=== PATIENT | female | born 1965 | race Caucasian/White ===

== ENCOUNTER 2021-08-28 10:15 | Inpatient (IN) | payer BC, OTHER ==
--- OUTSIDE RECORDS SUMMARY | 2021-08-28 10:18 | XMS REPORT | Continuity of Care Document ---
:1965 Author Organization [facility] t Address [address] [place] [address] Care Team Providers Name Role Phone DERRELL MULLIGAN Primary Care Physician Unavailable Nghia Mulligan Attending Clinician Unavailable Mohan AQUINO Attending Clinician Unavailable Kenia AYALA S Attending Clinician VERÓNICA DAVIS Attending Clinician Unavailable Payers Payer Name Policy Type Policy Number Effective Date Expiration Date Mohan chahal [facility] [id number] 2017 00:00:00 SELECT Problems Condition Condition Condition Status Onset Resolution Last Treating Co mments Source Name Details Category Date Date Treatment Clinician Date No known No known Disease Unive rs active active ity of problems problems [facility] Allergies, Adverse Reactions, Alerts Allergy Allergy Status Severity Reaction(s) Onset Inactive Treating Comm ents Source Name Type Date Date Clinician SULFA DRUG Active Unknown-Cmnt 0 Univ ers DYNE 2-15 ity of 00:00: [place] 00 [facility] ERYTHROM DRUG Active Unknown-Cmnt 0 Un jose armando YCIN 2-15 ity of 00:00: [place] 00 [facility] Erythrom Propensi Active Unknown - 0 Uni vers ycin ty to See comments 2-15 ity of adverse 00:00: [place] reaction 00 Medical s Branch Sulfa Propensi Active Unknown - 0 Unive rs Dyne ty to See comments 2-15 ity of adverse 00:00: [place] reaction 00 Medical s Branch NO KNOWN Drug Active Univers ALLERGIE Class ity of S [facility] Bactrim Adverse Active hives,vomiti [facility] Erythrom Adverse Active Vomiting [facility] Social History Social Habit Start Date Stop Date Quantity Comments Source Exposure to Not sure [facility] SARS-CoV-2 (event) Medica l Branch Sex Assigned At [birth year] [facility] 00:00:00 00:00:00 [facility] [place] Smoking Status Start Date Stop Date Source Unknown if ever smoked [facility] Medications Ordered Filled Start Stop Current Ordering Indication Dosage Frequency Signature Comments Components Source Medication Medication Date Date Medication? Clinician (SIG) Name Name dextfabienne 2021- No 5mL 5 mL, [facility] ers rphan-guaif 08-26 Oral, ity of enesin 22:45: 21:38 ONCE, 1 [place] (ROBITUSSIN 00 :00 dose, On Medi jacqueline DM) 10-100 Tue Branch mg/5 mL 08/26/21 at solution 5 1645, mL Routine ondansetron 2021- No 4mg 4 mg, [facility] ers (ZOFRAN-ODT 08-26 Oral, ity of ) 22:30: 21:39 ONCE, 1 [place] disintegrat 00 :00 dose, On Medi jacqueline ing tablet Tue Branch 4 mg 08/26/21 at 1630, Routine acetaminoph 2021- No 650mg 650 mg, U nivers en 08-26 Oral, ity of (TYLENOL) 21:45: 20:44 [facility] :00 dose, On Medic al mg Tue Branch 08/26/21 at 1545, KATRIN ondansetron Yes [id number] 4mg Take 1 Univers 4 mg 2-15 tablet by ity of disintegrat 00:00: mouth [place] ing tablet 00 every 8 Medica l (eight) Branch hours as needed for Nausea and Vomiting (N/V). Duloxetine Duloxetine Yes Na Mulligan TAKE ONE [facility] HCl HCl CAPSULE BY [facility] ent Clinics Furosemide Furosemide Yes Na Mulligan [address] [facility] Hydrochloro Hydrochloro Yes Na Mulligan [address] [address] thiazide thiazide in [facility] Folic Acid Folic Acid Yes Na Mulligan [address] [facility] Aspirin 81 Aspirin 81 Yes Na Mulligan [address] [facility] Furosemide Furosemide Yes Na Mulligan TAKE [address] [facility] TABLET BY [facility] DAILY l NEEDED FOR Outpati SWELLING ent Clinics Omeprazole Omeprazole Yes Na Mulligan [address] [facility] Lisinopril Lisinopril Yes Na Mulligan [address] [facility] Hydroxychlo Hydroxychlo Yes Na Mulligan TAKE [address] [facility] [address] roquine roquine TABLET BY Luke s - Sulfate Sulfate MOUTH ONCE Mem oria DAILY WITH l FOOD OR Outpati MILK ent Clinics Lisinopril Lisinopril Yes Na Mulligan [address] [facility] Omeprazole Omeprazole Yes Na Mulligan [address] [facility] Vitamin Vitamin Yes Na Mulligan [address] B-12 B-12 [facility] Hydrochloro Hydrochloro Yes Na Mulligan [address] [facility] [address] thiazide thiazide in the [facility] Immunizations Ordered Filled Immunization Date Status Comments [facility] e Immunization Name Name Afluria single dose Afluria single dose 2019-05-[address] [facility] Vital Signs Vital Name Observation Time Observation Value Comments Source Systolic blood 2021-08-26 21:45:00 98 mm[facility]Hg[facility] Diastolic blood 2021-08-26 21:45:00 64 mm[Hg] [facility] Heart rate 2021-08-26 21:45:00 108 /min [facility] Body temperature 2021-08-26 21:45:00 37.56 Manjula [facility] Respiratory rate 2021-08-26 21:45:00 20 /min [facility] Oxygen saturation in 2021-08-26 21:45:00 97 /min [facility] blood by [facility] Pulse oximetry Branch Body weight 2021-08-26 20:37:00 72.576 kg [facility] Procedures Procedure Date / Time Performed Performing Clinician Sourpavel e RAPID INFLUENZA A/B 2021-08-26 20:47:00 Jess Aquino [facility] COVID-19 (ID NOW 2021-08-26 20:47:00 Jess Aquino [facility] RAPID TESTING) Medical Branch NOTICE OF PRIVACY 2021-08-26 20:36:02 Doctor Unassigned, No Univ [facility] PRACTICES Name [facility] [place] CONSENT/REFUSAL FOR 2021-08-26 20:32:42 Doctor Unassigned, No Un [facility] DIAGNOSIS AND Name [facility] TREATMENT Encounters Start End Encounter Admission Attending Care Care Encounter Source Date/Time Date/Time Type Type Clinicians Facility Department ID 2021-08-26 Outpatient Mulligan, Na STLMLC ST[facility]MLC [id number] [facility] 14:35:00 [id number] [facility] 2021-08-06 Outpatient Mulligan, Na STLMLC STLMLC [id number] [facility] [address] 14:15:31 [id number] [facility] 2021-08-06 Outpatient Mulligan, Na STLMLC STLMLC [id number] [facility] [address] 13:48:34 [id number] [facility] 2021-08-06 Outpatient Mulligan, Na STLMLC STLMLC [id number] [facility] [address] 13:14:29 [id number] [facility] 2021-08-06 Outpatient Mulligan, Na STLMLC STLMLC [id number] [facility] 13:13:24 [id number] [facility] 2021-08-06 Outpatient Mulligan, Na STLMLC STLMLC [id number] [facility] [address] 12:18:26 [id number] [facility] 2021-08-06 Outpatient Mulligan, Na STLMLC STLMLC [id number] [facility] 11:35:56 [id number] [facility] 2021-08-06 [facility] [id number] [facility] 11:21:40 [id number] [facility] 2021-08-06 Out[facility] [id number] [facility] 11:04:27 [id number] [facility] 2021-08-26 2021-08-26 [facility] [id number] Univers 14:37:00 16:05:00 J[place] [facility] 2021-08-26 2021-08-26 [facility] [id number] Univers 14:37:00 16:05:00 Jess Preston PLEVNA [id number] i daren [facility] [id number] [facility] [id number] [address] 2021-07-02 2021-07-02 [address] [facility] [id number] [facility] 2021-04-29 2021-04-[address] [facility] [id number] 2021-04-15 2021-04-[address] [facility] [id number] [facility] 2020-12-23 2020-12-23 [facility] [id number] [facility] 2020-11-20 2020-11-20 [facility] [id number] [facility] 2020-11-19 2020-11-19 Outpatient [facility] [id number] [facility] 2020-08-16 2020-08-16 Outpatient PATT DAVIS [id number] [id number] 06:50:00 23:59:00 [facility] 2020-07-30 2020-07-[address] [facility] [id number] [facility] 2020-07-18 2020-07-[address] [facility] [id number] [facility] 2020-02-23 2020-02-23 [facility] [id number] [facility] 13:04:00 13:04:00 [place] [employer] - [facility] Medicine l Medicine Outpati ent Clinics 2020-02-20 2020-02-20 [facility] [id number] 16:00:00 16:00:00 [place] [employer] - Génie Num[employer]que [facility] Medicine l Medicine Outpati ent Clinics 2019-11-22 2019-11-22 [facility] [id number] 12:00:00 12:00:00 [place] [employer] - [facility] Medicine l Medicine Outpati ent Clinics 2019-11-15 2019-11-15 [facility] [id number] [address] 14:25:00 14:25:00 [place] [employer] - G[employer]ie Num[employer]que [facility] Medicine l Medicine Outpati ent Clinics 2019-08-07 2019-08-07 [facility] [id number] [address] 13:41:00 13:41:00 [place] [employer] - Drive [facility] Medicine l Medicine Outpati ent Clinics 2019-06-02 2019-06-02 [facility] [id number] 16:54:00 16:54:00 [place] [employer] - Génie Numérique [facility] Medicine l Medicine Outpati ent Clinics 2019-05-30 2019-05-30 [facility] [id number] 09:23:00 09:23:00 t [place] [employer] - Génie Numérique [facility] Medicine l Medicine Outpati ent Clinics 2019-05-12 2019-05-12 [facility] [id number] 16:00:00 16:00:00 [place] [employer] - Drive [facility] Medicine Outpati ent Clinics 2018-10-31 2018-10-31 [facility] [id number] [address] 16:49:00 16:49:00 t [place] [employer] - Génie Numérique [facility] Medicine Outpati ent Clinics 2018-10-04 2018-10-04 [facility] [id number] [address] 15:30:00 15:30:00 t [employer] - Génie Num[employer]que [facility] Medicine Outpati ent Clinics 2018-07-07 2018-07-07 [facility] [id number] 16:00:00 16:00:00 t [employer] - Génie Num[employer]que [facility] Medicine Outpati ent Clinics 2018-04-07 2018-04-07 [facility] [id number] [address] 15:45:00 15:45:00 t [employer] [facility] Medicine Outpati ent Clinics 2018-01-06 2018-01-06 [facility] [id number] 16:30:00 16:30:00 t [employer] [facility] Medicine Outpati ent Clinics 2017-12-17 2017-12-17 [facility] [id number] 09:30:00 09:30:00 t [employer] [facility] Medicine Outpati ent Clinics Results This patient has no known results.
[2021-08-28] MEDS ORDERED: NA CHLORIDE 0.9% 1,000 ML ONE (10:49)
--- NOTE | 2021-08-28 11:04 | RAD REPORT ---
EXAM DESCRIPTION: RAD - Chest Single View - 08/28/2021 10:57 am CLINICAL HISTORY: Cough;Fever COMPARISON: Chest Single View dated 06/13/2016 FINDINGS: Lines: None. Lungs: No evidence of edema or pneumonia. Pleural: No significant pleural effusions or pneumothorax. Cardiac: The heart size is within normal limits. Bones: No acute fractures. Other: IMPRESSION: No acute cardiopulmonary disease.
[2021-08-28] MEDS ORDERED: MORPHINE 4 MG/ML SYR ONE (11:15)
[2021-08-28] MEDS ORDERED: PROMETHAZINE INJ 25 MG/ML AMP ONE (11:15)
[2021-08-28 11:34] LABS: SARS-COV-2 RT PCR NEGATIVE (NEGATIVE)
[2021-08-28 11:37] LABS: Bilirubin Direct 0.1 mg/dL (0-0.2); Bilirubin Total 0.3 mg/dL (0.2-1.0); Protein, Total 7.7 g/dL (6.4-8.2)
[2021-08-28 11:46] LABS: Potassium 2.8 mmol/L (3.5-5.1)
[2021-08-28 11:47] LABS: Absolute Lymphocytes (CBC) 0.6 K/uL (0.7-4.9); Hematocrit 33.3 % (36.0-45.0); Lymphocytes % 2.5 % (15.3-44.8); MPV 8.5 fL (7.6-11.3)
[2021-08-28 12:26] LABS: Blood Morphology Comment NOT SEEN (NOT SEEN); Platelet Estimate ADEQ; Platelets, Giant FEW
[2021-08-28 12:40] LABS: Urine Blood 1+ (Negative); Urine Glucose Negative (Negative); Urine Protein 1+ (Negative)
--- NOTE | 2021-08-28 12:44 | RAD REPORT ---
EXAM DESCRIPTION: CTAbdomen Pelvis W Contrast - 08/28/2021 12:13 pm CLINICAL HISTORY: FLANK PAIN COMPARISON: No comparisons TECHNIQUE: CT of the abdomen and pelvis was performed. All CT scans are performed using dose optimization technique as appropriate and may include automated exposure control or mA/KV adjustment according to patient size. FINDINGS: Lower chest: No acute abnormality. Small hiatal hernia. Subpleural nodule in the right low er lobe measuring 6 millimeters is benign. Liver: No acute abnormality or suspicious lesions. Biliary: Cholecystectomy. Stomach: No significant focal abnormality. Duodenum: No significant focal abnormality. Pancreas: No significant abnormality. Spleen: No significant abnormality. Adrenal: No suspicious lesions. Kidney/ureter: No hydronephrosis. No renal calculi. Striated nephrograms bilaterally. Retroperitoneum: No retroperitoneal adenopathy. Vascular: No aneurysm. Atherosclerosis . Bowel: No significant focal abnormality. Peritoneum: No ascites or free air. Bladder: Trace bladder gas. Reproductive: No adnexal masses. Bones: No acute fracture. Multilevel degenerative changes are present in the spine. Other: n/a IMPRESSION: Striated nephrograms bilaterally concerning for pyelonephritis. Correlate with urinalysi s.
[2021-08-28] MEDS ORDERED: ACETAMINOPHEN 325 MG TABLET ONE (12:49)
[2021-08-28] MEDS ORDERED: NA CHLORIDE 0.9% 250 ML ONE (12:50)
[2021-08-28] MEDS ORDERED: POTASSIUM CL SA 10 MEQ TAB PO ONE (12:50)
[2021-08-28] MEDS ORDERED: KCL 20 MEQ/100 mL IVPB 100 ML IV ONE (12:50)
--- NOTE | 2021-08-28 13:26 | ER ---
Nurse's Notes [facility] Name: Mira Lim Age: 56 yrs Sex: Female : 1965 Arrival Date: 08/28/2021 Time: 10:18 Bed 14 Private MD: Diagnosis: Pyelonephritis acute-bilateral;Vomiting;Hypokalemia Presentation: 08/28 10:24 Chief complaint: Patient states: she has been having high fevers, body aches and chills ap3 the last few days. patient reports going to the Dr. office this morning and was sent here to the ER for her symptoms. Patient reports having recent kidney infection.-Patient was given 1 gram of rocephin at 0945 IM at the providers office. Coronavirus screen: chills, congestion, fatigue, fever, headache, muscle pain, nausea, shaking with chills, sore throat, vomiting. Client presents with at least one sign or symptom that may indicate coronavirus-19. Standard/surgical mask placed on the client. Provider contacted for isolation considerations. Ebola Screen: No symptoms or risks identified at this time. Initial Sepsis Screen: Does the patient meet any 2 criteria? HR > 90 bpm. Does the patient have a suspected source of infection? Yes: Productive cough/pneumonia. Risk Assessment: Do you want to hurt yourself or someone else? Patient reports no desire to harm self or others. Onset of symptoms was August 25, 2021. 10:24 Method Of Arrival: Ambulatory ap3 10:24 Acuity: MARIS 3 ap3 Triage Assessment: 10:29 General: Appears uncomfortable, Behavior is cooperative, Reports chills for fever for ap3 feeling ill for fatigue for. Pain: Complains of pain in "all over" Pain began gradually, 2-3 days ago. Neuro: Level of Consciousness is awake, alert, obeys commands, Oriented to person, place, time, situation, Appropriate for age Moves all extremities. Gait is steady, Speech is normal. Cardiovascular: Patient's skin is warm and dry. Respiratory: Airway is patent Respiratory effort is even, unlabored, Respiratory pattern is regular, symmetrical. GI: Reports nausea, vomiting. Historical: - Allergies: 10:27 erythromycin base; ap3 10:27 Sulfa (Sulfonamide Antibiotics); ap3 - Home Meds: 10:27 Hydrochlorothiazide Oral [Active]; hydroxychloroquine oral [Active]; ap3 - PMHx: 10:27 Hypertension; Lupus erythematosus; ap3 - Immunization history:: Client reports receiving the 2nd dose of the Covid vaccine, Flu vaccine is up to date. - Social history:: Smoking status: Patient denies any tobacco usage or history of. Screenin:31 Abuse screen: Denies threats or abuse. Nutritional screening: No deficits noted. ap3 Tuberculosis screening: No symptoms or risk factors identified. 19:37 Fall Risk None identified. No fall in past 12 months (0 pts). No secondary diagnosis (0 st1 pts). IV access (20 points). Ambulatory Aid- None/Bed Rest/Nurse Assist (0 pts). Gait- Normal/Bed Rest/Wheelchair (0 pts) Mental Status- Oriented to own ability (0 pts). Total Brewer Fall Scale indicates No Risk (0-24 pts). Assessment: 10:38 General: Appears in no apparent distress. uncomfortable, Behavior is calm, cooperative. ic1 Pain: Denies pain. Neuro: Level of Consciousness is awake, alert, obeys commands, Oriented to person, place, time, situation. Cardiovascular: No deficits noted. Respiratory: No deficits noted. Musculoskeletal: Reports generalized body aches. 10:54 General: patient provided with specimen cup and education for proper urine collection. ap3 Patient verbalized understanding. . 13:12 Reassessment: Pt labs (lactate, blood cultures x 2) collected incorrectly. Redrawn and ic1 collected at pt's bedside using two patient identifiers. Lab called on multiple attempts to notify to dispose of incorrectly collected labs. Acknowledged understanding each time. 18:44 Reassessment: Attempted pt report and was told they are in shift huddle as of now. Will ic1 call back to receive report. Vital Signs: 10:24 BP 142 / 109; Pulse 123; Resp 19; Temp 100.9; Pulse Ox 98% ; Weight 72.57 kg; Height 5 ap3 ft. (152.40 cm); 11:12 BP 116 / 70; Pulse 107; Resp 17; Pulse Ox 99% ; Pain 10/10; eo2 13:14 BP 109 / 72; Pulse 100; Resp 18; Pulse Ox 99% on R/A; ic1 14:31 BP 120 / 77; Pulse 107; Resp 18; Pulse Ox 100% on R/A; ic1 18:38 BP 117 / 73; Pulse 116; Resp 18; Pulse Ox 100% on R/A; ic1 10:24 Body Mass Index 31.25 (72.57 kg, 152.40 cm) ap3 ED Course: 10:18 Patient arrived in ED. ds1 10:27 Triage completed. ap3 10:31 Arm band placed on right wrist. ap3 10:36 Waylon Cho NP is PHCP. pm1 10:36 Bhaskar Zhang MD is Attending Physician. pm1 10:38 Jayde Renee RN is Primary Nurse. ic1 10:45 No provider procedures requiring assistance completed. Inserted saline lock: 20 gauge ic1 in left antecubital area, using aseptic technique. Blood collected. 10:57 Chest Single View XRAY In Process Unspecified. EDMS 10:57 COVID-19/FLU A+B (Document "Date of Onset" if Symptomatic) Sent. ap3 12:13 CT Abd/Pelvis - IV Contrast Only In Process Unspecified. EDMS 13:25 Hector Jerez MD is Hospitalizing Provider. pm1 14:32 Blood Culture Adult (2) Sent. tp1 14:32 Inserted saline lock: 20 gauge in right antecubital area, using aseptic technique. tp1 Blood collected. 19:37 Patient has correct armband on for positive identification. st1 19:38 Patient admitted, IV remains in place. st1 Administered Medications: 11:07 Drug: NS 0.9% 1000 ml Route: IV; Rate: 1000 ml; Site: right antecubital; ic1 11:21 Drug: Phenergan (promethazine) 12.5 mg Route: IVP; Site: left antecubital; eo2 11:21 Drug: morphine 4 mg Route: IVP; Site: left antecubital; eo2 12:56 Drug: Potassium Chloride 20 mEq Route: IV; Rate: calculated rate; Site: left ic1 antecubital; 12:56 Drug: Potassium Chloride 40 mEq Route: PO; ic1 13:10 Drug: Tylenol 650 mg Route: PO; ic1 Outcome: 13:26 Decision to Hospitalize by Provider. pm1 19:36 Admitted to Tele accompanied by tech, family with patient, via stretcher, room 212, st1 with chart, Report called to TERESA Diamond 19:37 Condition: good st1 19:37 Instructed on the need for admit, Demonstrated understanding of 19:50 Patient left the ED. bb Signatures: Dispatcher [employer] [facility] Leona Duvall ds1 Caryl Mccartney RN RN bb Waylon Cho, CAPSULE INSPECTOR CAPSULE INSPECTOR pm1 Becky Jesus RN RN ap3 Janene Norman tp1 Ainsley Leigh RN RN eo2 Jayde Renee RN RN ic1 Annette Amaro RN RN st1 Corrections: (The following items were deleted from the chart) 10:31 10:24 Chief complaint: Patient states: she has been having high fevers, body aches and ap3 chills the last few days. patient reports going to the office this morning and was sent here to the ER for her symptoms. Patient reports having recent kidney infection. ap3
[2021-08-28 13:27] LABS: Urine Bacteria <20 /HPF (<20); Urine RBC <5 /HPF (NONE SEEN); Urine Yeast FEW (NONE SEEN)
--- NOTE | 2021-08-28 13:27 | EDPHYS ---
Physician Documentation [facility] Name: Mira Lim Age: 56 yrs Sex: Female : 1965 Arrival Date: 08/28/2021 Time: 10:18 Bed 14 Private MD: ED Physician Bhaskar Zhang HPI: 08/28 10:43 This 56 yrs old Female presents to ER via Ambulatory with complaints of Sent By Dr beti Vance- Flank Pain, Fever. 10:43 The patient complains of pain in the left low back. The pain does not radiate. Onset: pm1 The symptoms/episode began/occurred 3 day(s) ago. Modifying factors: The symptoms are alleviated by nothing. the symptoms are aggravated by nothing. Associated signs and symptoms: Pertinent positives: fever, dark urine, Pertinent negatives: diarrhea. Severity of pain: in the emergency department the pain is actually worse. The patient has not experienced similar symptoms in the past. The patient has been recently seen by a physician: the patient's primary care provider, Dr. Vance's midlevel and given IM Rocephin for possibly UTI. Historical: - Allergies: 10:27 erythromycin base; ap3 10:27 Sulfa (Sulfonamide Antibiotics); ap3 - Home Meds: 10:27 Hydrochlorothiazide Oral [Active]; hydroxychloroquine oral [Active]; ap3 - PMHx: 10:27 Hypertension; Lupus erythematosus; ap3 - Immunization history:: Client reports receiving the 2nd dose of the Covid vaccine, Flu vaccine is up to date. - Social history:: Smoking status: Patient denies any tobacco usage or history of. ROS: 10:43 Cardiovascular: Negative for chest pain, palpitations, and edema, Respiratory: Negative pm1 for shortness of breath, cough, wheezing, and pleuritic chest pain. 10:43 MS/Extremity: Negative for injury and deformity, Skin: Negative for injury, rash, and discoloration, Neuro: Negative for headache, weakness, numbness, tingling, and seizure. 10:43 Constitutional: Positive for body aches, fever. 10:43 Abdomen/GI: Positive for nausea and vomiting, Negative for abdominal pain, diarrhea. 10:43 Back: Positive for flank pain, bilaterally. 10:43 : Positive for flank pain, Dark urine. 10:43 All other systems are negative. Exam: 10:43 Constitutional: This is a well developed, well nourished patient who is awake, alert, pm1 and in no acute distress. Head/Face: Normocephalic, atraumatic. 10:43 Skin: Warm, dry with normal turgor. Normal color with no rashes, no lesions, and no evidence of cellulitis. MS/ Extremity: Pulses equal, no cyanosis. Neurovascular intact. Full, normal range of motion. 10:43 Cardiovascular: Exam negative for acute changes, Rate: tachycardic, Rhythm: regular, Pulses: no pulse deficits are appreciated, Heart sounds: normal, normal S1and S2, Edema: is not appreciated. 10:43 Respiratory: Exam negative for acute changes, respiratory distress, shortness of breath, Breath sounds: are clear throughout. 10:43 Abdomen/GI: Inspection: abdomen appears normal, Palpation: abdomen is soft and non-tender, in all quadrants. 10:43 Back: pain, that is moderate, of the left low back, vertebral tenderness, is not appreciated. 10:43 Neuro: Exam negative for acute changes, Orientation: is normal, Motor: is normal, moves all fours. Vital Signs: 10:24 BP 142 / 109; Pulse 123; Resp 19; Temp 100.9; Pulse Ox 98% ; Weight 72.57 kg; Height 5 ap3 ft. (152.40 cm); 11:12 BP 116 / 70; Pulse 107; Resp 17; Pulse Ox 99% ; Pain 10/10; eo2 13:14 BP 109 / 72; Pulse 100; Resp 18; Pulse Ox 99% on R/A; ic1 14:31 BP 120 / 77; Pulse 107; Resp 18; Pulse Ox 100% on R/A; ic1 18:38 BP 117 / 73; Pulse 116; Resp 18; Pulse Ox 100% on R/A; ic1 10:24 Body Mass Index 31.25 (72.57 kg, 152.40 cm) ap3 MDM: 10:42 Patient medically screened. pm1 10:43 Data reviewed: vital signs. Data interpreted: Pulse oximetry: on room air is 98 %. pm1 Interpretation: normal. 13:10 Counseling: I had a detailed discussion with the patient and/or guardian regarding: the pm1 historical points, exam findings, and any diagnostic results supporting the discharge/admit diagnosis, lab results, radiology results, the need for further work-up and treatment in the hospital. 08/28 10:34 Order name: COVID-19/FLU A+B (Document "Date of Onset" if Symptomatic) ap3 08/28 10:34 Order name: COVID-19/FLU A+B; Complete Time: 11:44 EDMS 08/28 10:46 Order name: Basic Metabolic Panel; Complete Time: 11:49 pm1 08/28 10:46 Order name: CBC with Diff; Complete Time: 12:41 pm1 08/28 10:46 Order name: Hepatic Function; Complete Time: 11:49 pm1 08/28 10:46 Order name: Lipase; Complete Time: 11:49 pm1 08/28 10:46 Order name: Urine Microscopic Only; Complete Time: 14:04 pm1 08/28 11:50 Order name: Procalcitonin; Complete Time: 14:04 pm1 08/28 11:50 Order name: Lactate; Complete Time: 12:41 pm1 08/28 12:26 Order name: Manual Differential; Complete Time: 12:41 EDMS 08/28 12:41 Order name: Urine Dipstick-Ancillary; Complete Time: 12:41 EDMS 08/28 12:43 Order name: Urine Dipstick-Ancillary EDLA 08/28 12:44 Order name: Blood Culture Adult (2) ic 08/28 10:46 Order name: IV Saline Lock; Complete Time: 11:12 pm1 08/28 10:46 Order name: Labs collected and sent; Complete Time: 11:12 pm08/28 10:46 Order name: CT Abd/Pelvis - IV Contrast Only; Complete Time: 12:47 pm08/28 10:46 Order name: Chest Single View XRAY; Complete Time: 11:44 pm1 08/28 10:46 Order name: Urine Dipstick-Ancillary (obtain specimen); Complete Time: 12:44 pm1 08/28 12:44 Order name: Lactate; Complete Time: 13:10 ic1 08/28 13:15 Order name: Magnesium; Complete Time: 14:04 pm1 08/28 13:19 Order name: Urine Culture pm1 08/28 16:12 Order name: Diet Ada 1800 Moreno; Complete Time: 16:13 bd 08/28 18:46 Order name: Procalcitonin EDLA 08/28 16:30 Order name: Labs - recollect needed: recollect light green; Complete Time: 17:50 bd Administered Medications: 11:07 Drug: NS 0.9% 1000 ml Route: IV; Rate: 1000 ml; Site: right antecubital; ic1 11:21 Drug: Phenergan (promethazine) 12.5 mg Route: IVP; Site: left antecubital; eo2 11:21 Drug: morphine 4 mg Route: IVP; Site: left antecubital; eo2 12:56 Drug: Potassium Chloride 20 mEq Route: IV; Rate: calculated rate; Site: left ic1 antecubital; 12:56 Drug: Potassium Chloride 40 mEq Route: PO; ic1 13:10 Drug: Tylenol 650 mg Route: PO; ic1 Disposition Summary: 08/28/21 13:26 Hospitalization Ordered Hospitalization Status: Inpatient Admission pm1 Provider: Hector Jerez pm1 Location: Telemetry/MedSurg (Inpatient) pm1 Condition: Stable pm1 Problem: new pm1 Symptoms: have improved pm1 Bed/Room Type: Standard pm1 Room Assignment: 212(08/28/21 18:35) bd Diagnosis - Pyelonephritis acute - bilateral pm1 - Vomiting pm1 - Hypokalemia pm1 Forms: - Medication Reconciliation Form pm1 - SBAR form pm1 Addendum: 08/30/2021 00:03 Co-signature as Attending Physician, Bhaskar Zhang MD I agree with the assessment and k dr plan of care. Signatures: Dispatcher [employer] EDLA Latricia Paez Kevin, MD MD [facility] Waylon Cho NP [employer] pm1 Becky Jesus RN RN ap3 Ainsley Leigh RN RN eo2 Jayde Renee RN RN ic1 Corrections: (The following items were deleted from the chart) 08/28 13:36 11:51 BLOOD CULTURE*+[id number].BRZ ordered. [facility] EDLA 18:35 13:26 pm1 bd
--- NOTE | 2021-08-28 14:58 | P.HP ---
Certification for Inpatient With expected LOS: <2 Midnights Patient will require the following post-hospital care: None Practitioner: I am a practitioner with admitting privileges, knowledge of patient current condition, hospital course, and medical plan of care. Services: Services provided to patient in accordance with Admission requirements found in Title 42 Section 412.3 of the Code of Federal Regulations <Teresa Dillon - Last Filed: 08/28/21 14:52> Patient History Date of Service: 08/28/21 Primary Care Provider: Unknown Reason for admission: Pyelonephritis History of Present Illness: Patient is a 56 y/o F with HTN and lupus who presents to the ED with 4 days of back pain. She suspected the pain was coming from her kidneys but could not get into see her PCP for a few days. Patient went to her PCP today and gave a urine sample. She was given a 1 gram rocephin and sent to the ED. Patient reports having nausea, vomiting, and fever for the past 4 days. In the ED, WBC 24.4, potassium 2.8, urine 1+ blood, positive nitrite, 1+ leuk est, and 10-[address] abd/pelv suggested pyelonephritis. Patient will be admitted for further treatment. - Past Medical/Surgical History Diabetic: No -: HTN -: Lupus -: Cholecystectomy -: Tonsillectomy -: Sinus Surgery Psychosocial/ Personal History: Patient lives at home with her . She works at a skilled nursing. - Family History Mother -: Other (see notes) (Bipolar and Dementia ) Father -: Cancer (Prostate) - Social History Smoking Status: Never smoker Alcohol use: Yes CD- Drugs: No Caffeine use: Yes Place of Residence: Home <Teresa Dillon - Last Filed: 08/28/21 14:52> Date of Service: 08/28/21 <Hector Jerez - Last Filed: 08/28/21 21:36> Allergies erythromycin base Allergy (Verified 03/06/16 12:08) Nausea/Vomiting/Hives Sulfa (Sulfonamide Antibiotics) Allergy (Verified 03/06/16 12:08) Nausea/Vomiting/Hives Home Medications: Amlodipine [Norvasc] 2.5 mg PO DAILY 11/04/15 Cholecalciferol (Vitamin D3) [Vitamin D3] 2 tab PO DAILY 11/04/15 Cyanocobalamin [Vitamin B-12] 1,000 mcg PO DAILY 11/04/15 Hydroxychloroquine [Plaquenil] 200 mg PO DAILY 11/04/15 Lactobacillus Combo No.13 [Probiotic Pearls Complete] 1 each PO DAILY 11/04/15 Lisinopril [Zestril] 2.5 mg PO DAILY 11/04/15 Omeprazole [Prilosec] 40 mg PO BID 11/04/15 Venlafaxine HCl [Effexor XR] 150 mg PO DAILY PRN 11/04/15 Review of Systems 10-point ROS is otherwise unremarkable General: Fever, Chills, As per HPI Genitourinary: As per HPI Musculoskeletal: Back Pain <Teresa Dillon - Last Filed: 08/28/21 14:52> Physical Examination - Physical Exam General: Alert, In no apparent distress, Oriented x3, Cooperative HEENT: Atraumatic, Normocephalic Neck: Supple, 2+ carotid pulse no bruit, No LAD, Without JVD or thyroid abnormality Respiratory: Clear to auscultation bilaterally, Normal air movement Cardiovascular: Regular rate/rhythm, Normal S1 S2 Gastrointestinal: Normal bowel sounds, No tenderness Musculoskeletal: No tenderness Integumentary: No rashes Neurological: Normal speech, Normal strength at 5/5 x4 extr, Normal tone, Normal affect - Studies Laboratory Data (last 24 hrs) 08/28/21 13:30: Magnesium 1.9 08/28/21 11:05: WBC 24.40 H*, Hgb 11.0 L, Hct 33.3 L, Plt Count 330 08/28/21 11:05: Sodium 133 L, Potassium 2.8 L*, BUN 11, Creatinine 1.18, Glucose 122 H, Total Bilirubin 0.3, AST 14 L, ALT 28, Alkaline Phosphatase 165 H, Lipase 49 L <Teresa Dillon - Last Filed: 08/28/21 14:52> - Studies Laboratory Data (last 24 hrs) 08/28/21 13:30: Magnesium 1.9 08/28/21 11:05: WBC 24.40 H*, Hgb 11.0 L, Hct 33.3 L, Plt Count 330 08/28/21 11:05: Sodium 133 L, Potassium 2.8 L*, BUN 11, Creatinine 1.18, Glucose 122 H, Total Bilirubin 0.3, AST 14 L, ALT 28, Alkaline Phosphatase 165 H, Lipase 49 L <Hector Jerez - Last Filed: 08/28/21 21:36> Assessment and Plan - Plan Assessment Acute pyelonephritis without complication Hypokalemia Lupus HTN Plan Acute pyelonephritis without complication: WBC 24 in ED, will trend. Lactate negative. rocephin 1g q24h, zofran PRN nausea, morphine PRN pain Hypokalemia: 2.8 in the ED and given supplementation. will continue to replete as necessary Lupus: obtain and continue home medications HTN: obtain and continue home medications DVT PPX: Lovenox Code Status: Full Discharge Plan: Home Plan to discharge in: 48 Hours - Advance Directives Does patient have a Living Will: No Does patient have a Durable POA for Healthcare: No - Code Status/Comfort Care Code Status Assessed: Yes (Full) Critical Care: No Time Spent Managing Pts Care (In Minutes): 55 <Teresa Dillon - Last Filed: 08/28/21 14:52> - Plan Plan of care reviewed with Teresa Dillon and agree with plan as noted above. Patient without severe sepsis. Continue rocephin for acute pyelonephritis f/u cultures patient received IM dose of rocephin at PCPs office, may affect cultures <Hector Jerez - Last Filed: 08/28/21 21:36>
[2021-08-28] MEDS ORDERED: ONDANSETRON 4 MG/2 ML VIAL IV PRN (16:02)
[2021-08-28] MEDS ORDERED: MORPHINE 2 MG/ML SYR IV PRN (16:02)
[2021-08-28] MEDS ORDERED: ENOXAPARIN 40 MG/0.4 ML SQ ONE (17:00)
[2021-08-28] MEDS: ACETAMINOPHEN 500 MG TAB PO PRN (20:51)
[2021-08-28] MEDS: NA CHLORIDE 0.9% 1,000 ML IV SCH (20:53)
[2021-08-28 22:42] VITALS: BMI 30.3
[2021-08-29] MEDS: ACETAMINOPHEN 500 MG TAB PO PRN ×3 (02:15→20:38)
[2021-08-29 05:41] LABS: Absolute Lymphocytes (CBC) 0.8 K/uL (0.7-4.9); Hematocrit 28.5 % (36.0-45.0); Lymphocytes % 5.5 % (15.3-44.8); MPV 8.4 fL (7.6-11.3); RBC Red Blood Cell Count 3.33 M/uL (3.86-4.86)
[2021-08-29 06:13] LABS: Blood Morphology Comment NOT SEEN (NOT SEEN); Platelet Estimate ADEQ; White Blood Cell Scan OK (OK)
--- NOTE | 2021-08-29 06:17 | P.PN ---
Date of Service: 08/29/21 Subjective: No acute events overnight Reports feeling better, no longer dysuria Back pain improved Fever curve improving ROS: 10 point ROS as noted above, otherwise negative Physical exam GEN: Alert, oriented, NAD HEENT: Normal conjunctiva, sclera anicteric CV: Regular rate and rhythm, no edema Pulm: Non-labored respirations on room air ABD: Soft, nontender, nondistended, no CVA tenderness Neuro: Normal speech, normal affect Problem List Acute bilateral pyelonephritis Hypokalemia Lupus HTN Leukocytosis, procalcitonin improving Continue empiric antibiotics with IV Rocephin Zofran as needed, morphine as needed for pain Hypokalemia improved with repletion Fever curve improving Continue current home medications Follow-up cultures VTE: Lovenox Code: Full Dispo: Anticipate DC home in next 1-2 days, follow-up cultures Time Spent Managing Pts Care (In Minutes): 35
[2021-08-29 06:22] LABS: Bilirubin Total 0.3 mg/dL (0.2-1.0); Protein, Total 6.2 g/dL (6.4-8.2)
[2021-08-29 06:23] LABS: Potassium 3.5 mmol/L (3.5-5.1)
[2021-08-29] MEDS: NA CHLORIDE 0.9% 1,000 ML IV SCH ×3 (06:52→20:34)
[2021-08-29] MEDS: CEFTRIAXONE 1,000 MG in NA CHLORIDE 0.9% 50 ML IVPB SCH (08:40)
[2021-08-29] MEDS: ENOXAPARIN 40 MG/0.4 ML SQ SCH (08:41)
[2021-08-29] MEDS ORDERED: POTASSIUM CL SA 10 MEQ TAB PO ONE (09:00)
--- NOTE | 2021-08-29 13:37 | P.CNS ---
Date of Consult: 08/29/21 Primary Care Provider: Unknown Chief Complaint: Pyelonephritis History of Present Illness: The patient is a 56-year-old female with a past medical history of lupus and hypertension who presented to the emergency department secondary to high fevers, dysuria, backaches, and general malaise. Patient states that her symptoms first began Wednesday night with fevers recorded at 103.7. Patient states that she was seen at [facility] on Wednesday and was discharged with no antibiotics. She was then seen by her primary care physician on and was sent to the ED. CT abdomen pelvis showed bilateral pyelonephritis. Urinalysis positive for nitrites and leuk esterase. Blood and urine culture pending, patient Peraglie placed on Rocephin. Infectious diseases been consulted to manage patient's antibiotic regimen. Recommend continuing empiric IV Rocephin until urine cultures are obtained. Patient currently denies nausea/vomiting/diarrhea/shortness of breath/chest pain. Allergies erythromycin base Allergy (Verified 03/06/16 12:08) Nausea/Vomiting/Hives Sulfa (Sulfonamide Antibiotics) Allergy (Verified 03/06/16 12:08) Nausea/Vomiting/Hives Home Medications: Amlodipine [Norvasc] 2.5 mg PO DAILY 11/04/15 Cholecalciferol (Vitamin D3) [Vitamin D3] 2 tab PO DAILY 11/04/15 Cyanocobalamin [Vitamin B-12] 1,000 mcg PO DAILY 11/04/15 Lactobacillus Combo No.13 [Probiotic Pearls Complete] 1 each PO DAILY 11/04/15 Lisinopril [Zestril] 2.5 mg PO DAILY 11/04/15 Omeprazole [Prilosec] 40 mg PO BID 11/04/15 Venlafaxine HCl [Effexor XR] 150 mg PO DAILY PRN 11/04/15 - Past Medical/Surgical History Diabetic: No -: HTN -: Lupus -: Cholecystectomy -: Tonsillectomy -: Sinus Surgery Psychosocial/ Personal History: Patient lives at home with her . She works at a intermediate. - Family History Mother Medical History: Other (see notes) Notes: dementia Father Medical History: Stroke, Cancer - Social History Smoking Status: Never smoker Alcohol use: Yes CD- Drugs: No Caffeine use: Yes Place of Residence: Home Review of Systems 10-point ROS is otherwise unremarkable Physical Examination Temp Pulse Resp BP Pulse Ox 97.4 F 89 18 97/66 97 08/29/21 12:00 08/29/21 12:00 08/29/21 12:00 08/29/21 12:00 08/29/21 12:00 General: Alert, In no apparent distress, Oriented x3 HEENT: Atraumatic, Normocephalic Neck: Supple, 2+ carotid pulse no bruit Respiratory: Clear to auscultation bilaterally, Normal air movement Cardiovascular: No edema, Normal pulses, Regular rate/rhythm Gastrointestinal: Normal bowel sounds, Soft and benign Musculoskeletal: No clubbing, No swelling, No contractures Integumentary: No rashes, No breakdown, No significant lesion Laboratory Data (last 24 hrs) 08/28/21 13:30: Magnesium 1.9 Conclusions/Impression: Antibiotics: Rocephin: 08/29current Assessment/plan Bilateral pyelonephritis CT abdomen pelvis confirmed bilateral pyelonephritis. Blood and urine cultures pending. Patient placed on empiric IV Rocephin, recommend continuing this medication until cultures are obtained. Medical management per primary team Plan of care discussed with Dr. Flores Thank for consultation
[2021-08-29] MEDS: BENZONATATE 100 MG CAP PO PRN (17:24)
[2021-08-30] MEDS: ACETAMINOPHEN 500 MG TAB PO PRN ×2 (03:31→16:38)
--- NOTE | 2021-08-30 06:14 | P.PN ---
Date of Service: 08/30/21 Subjective: Continues to improve Afebrile No dysuria anymore, no CVA tenderness Appetite improving ROS: 10 point ROS as noted above, otherwise negative Physical exam GEN: Alert, oriented, NAD HEENT: Normal conjunctiva, sclera anicteric CV: Regular rate and rhythm, no edema Pulm: Non-labored respirations on room air ABD: Soft, nontender, nondistended, no CVA tenderness Neuro: Normal speech, normal affect Problem List Acute bilateral pyelonephritis Hypokalemia Lupus HTN Overall improving Inflammatory markers trending down Continue empiric antibiotics with IV Rocephin Still waiting on urine culture, concerned may not be growing bacteria, patient received Rocephin in clinic prior to coming to the ED Blood culture negative Hypokalemia improved with repletion Continue current home medications. DC IV fluids VTE: Lovenox Code: Full Dispo: Anticipate DC home in next 24 hours, wound cultures Time Spent Managing Pts Care (In Minutes): 35
[2021-08-30 06:33] LABS: Absolute Lymphocytes (CBC) 1.1 K/uL (0.7-4.9); Hematocrit 28.3 % (36.0-45.0); Lymphocytes % 10.7 % (15.3-44.8); MPV 7.9 fL (7.6-11.3); RBC Red Blood Cell Count 3.31 M/uL (3.86-4.86)
[2021-08-30 07:01] LABS: Bilirubin Total 0.2 mg/dL (0.2-1.0); Potassium 3.1 mmol/L (3.5-5.1)
[2021-08-30] MEDS: ENOXAPARIN 40 MG/0.4 ML SQ SCH (08:06)
[2021-08-30] MEDS: CEFTRIAXONE 1,000 MG in NA CHLORIDE 0.9% 50 ML IVPB SCH (08:06)
[2021-08-30 08:08] LABS: Blood Morphology Comment NOT SEEN (NOT SEEN); Platelet Estimate ADEQ
[2021-08-30] MEDS: NA CHLORIDE 0.9% 1,000 ML IV SCH (12:25)
[2021-08-30] MEDS ORDERED: POTASSIUM 25 MEQ EFFERV TAB PO ONE ×2 (15:36→21:51)
[2021-08-30] MEDS: BENZONATATE 100 MG CAP PO PRN (18:30)
--- NOTE | 2021-08-31 06:10 | P.PN ---
Date of Service: 08/31/21 Subjective: Reports urine is cleared up, denies dysuria Febrile yesterday, otherwise continues to improve Continues with cough, states may be slightly worse No further back pain/CVA tenderness ROS: 10 point ROS as noted above, otherwise negative Physical exam GEN: Alert, oriented, NAD HEENT: Normal conjunctiva, sclera anicteric CV: Regular rate and rhythm, no edema Pulm: Non-labored respirations on room air, cough, transmitted upper airway sounds ABD: Soft, nontender, nondistended, no CVA tenderness Neuro: Normal speech, normal affect Problem List Acute bilateral pyelonephritis Hypokalemia Lupus HTN Overall improving Inflammatory markers trending down Patient febrile again yesterday after 24 hours afebrile, with slight cough, will check chest x-ray, swab for Covid. Unlikely Majority of her symptoms have resolved/improved, no abdominal tenderness, no CVA tenderness. Switch Rocephin to Levaquin, urine culture with mixed katerin. Blood culture remain negative. Suspect Rocephin given in clinic affected culture If patient becomes febrile again or has any abdominal/urinary symptoms, will repeat CT abdomen/pelvis, rule out any perinephric abscess. Currently without any pain/CVA tenderness Continue current home medications. VTE: Lovenox Code: Full Dispo: Anticipate DC home tomorrow Time Spent Managing Pts Care (In Minutes): 35
[2021-08-31 06:17] LABS: Absolute Lymphocytes (CBC) 1.4 K/uL (0.7-4.9); Hematocrit 29.3 % (36.0-45.0); Lymphocytes % 13.9 % (15.3-44.8); MPV 7.7 fL (7.6-11.3); RBC Red Blood Cell Count 3.44 M/uL (3.86-4.86)
[2021-08-31 06:29] LABS: Magnesium 2.1 mg/dL (1.8-2.4); Potassium 3.7 mmol/L (3.5-5.1)
[2021-08-31] MEDS: ACETAMINOPHEN 500 MG TAB PO PRN (06:38)
[2021-08-31] MEDS ORDERED: POTASSIUM 25 MEQ EFFERV TAB PO ONE (06:40)
[2021-08-31] MEDS: BENZONATATE 100 MG CAP PO PRN ×2 (07:10→20:26)
[2021-08-31] MEDS: Levofloxacin 750mg IV 750 MG/150 ML BAG IV SCH (07:42)
[2021-08-31] MEDS: ENOXAPARIN 40 MG/0.4 ML SQ SCH (07:50)
--- NOTE | 2021-08-31 10:21 | RAD REPORT ---
EXAM DESCRIPTION: Amarilis Pa And Lat (2 Views)08/31/2021 9:27 am CLINICAL HISTORY: Cough COMPARISON: August 28, 2021 FINDINGS: The lungs appear clear of acute infiltrate. The heart is normal size. A small left pleural effusion or thickening
[2021-08-31 21:59] VITALS: O2SAT 100
[2021-09-01 04:02] LABS: Hematocrit 27.9 % (36.0-45.0); MPV 7.9 fL (7.6-11.3); RBC Red Blood Cell Count 3.27 M/uL (3.86-4.86)
[2021-09-01 04:16] LABS: Potassium 3.7 mmol/L (3.5-5.1)
[2021-09-01] MEDS: Levofloxacin 750mg IV 750 MG/150 ML BAG IV SCH (06:24)
[2021-09-01] MEDS: ENOXAPARIN 40 MG/0.4 ML SQ SCH (08:46)
[2021-09-01] MEDS ORDERED: POTASSIUM CL SA 10 MEQ TAB PO ONE (09:00)
--- NOTE | 2021-09-01 11:41 | P.PN ---
Subjective Date of Service: 09/01/21 Primary Care Provider: Unknown Chief Complaint: Pyelonephritis Patient seen and examined at bedside, states her symptoms have significantly improved. Plan for DC today. Review of Systems 10-point ROS is otherwise unremarkable Physical Examination - Vital Signs Temperature: 97.4 F Blood Pressure: 122/65 Pulse: 80 Respirations: 15 Pulse Ox (%): 97 - Studies Microbiology Data (last 24 hrs): 08/28/21 13:19 Clean Catch Urine Anton Count - Final 08/28/21 13:19 Clean Catch Urine - Final MIXED KATERIN. Assessment And Plan - Plan Physical Exam: General: Alert, In no apparent distress, Oriented x3 HEENT: Atraumatic, Normocephalic Neck: Supple, 2+ carotid pulse no bruit Respiratory: Clear to auscultation bilaterally, Normal air movement Cardiovascular: No edema, Normal pulses, Regular rate/rhythm Gastrointestinal: Normal bowel sounds, Soft and benign Musculoskeletal: No clubbing, No swelling, No contractures Integumentary: No rashes, No breakdown, No significant lesion Conclusions/Impression: Antibiotics: Rocephin: 08/29current Assessment/plan Bilateral pyelonephritis CT abdomen pelvis confirmed bilateral pyelonephritis. Blood culture showed no growth, urine culture showed mixed katerin. Recommend discontinuing IV Rocephin and transitioning to oral Levaquin x7 days. Medical management per primary team Plan of care discussed with Dr. Mark Sultana for consultation
[2021-09-01 12:23] VITALS: BP 128/58; TEMP 97.8
--- NOTE | 2021-09-01 17:44 | P.DS ---
Admission Date: 08/28/21 Discharge Date: 09/01/21 Primary Care Provider: Unknown Disposition: ROUTINE DISCHARGE Discharge Condition: GOOD Reason for Admission: Pyelonephritis Consultations: Infectious disease Procedures: Problem List Acute bilateral pyelonephritis Lupus HTN Brief History of Present Illness: 56yo F, PMH HTN, SLE presented to ED due to 4 days of back pain. Presented to PCP today and was given 1g rocephin IM and sent to ED. Patient found to have bilateral pyelonephritis on CT and was admitted for further management. Hospital Course: Patient was found to have bilateral pyelonephritis. She was empirically treated with IV rocephin and had improvement of her symptoms. She was afebrile for ~24hrs when she developed another fever on day 3 of antibiotics. She did not have any new or worsening symptoms, and was otherwise continuing to clinically improve. Inflammatory markers continued to improve as well. Rocephin was switched to Levaquin. Patient remained afebrile and was feeling much better. Discharged home to complete 7 more days of levaquin. Urine culture: mixed katerin Blood culturs: no growth Follow up with PCP within 1 week. If you have worsening symptoms, please go to the ER. Vital Signs/Physical Exam: Physical exam GEN: Alert, oriented, NAD HEENT: Normal conjunctiva, sclera anicteric CV: Regular rate and rhythm, no edema Pulm: Non-labored respirations on room air, cough ABD: Soft, nontender, nondistended, no CVA tenderness Neuro: Normal speech, normal affect Temp Pulse Resp BP Pulse Ox 97.8 F 68 17 128/58 L 98 09/01/21 12:00 09/01/21 12:00 09/01/21 12:00 09/01/21 12:00 09/01/21 12:00 Laboratory Data at Discharge: WBC 11.20 K/uL (4.3-10.9) H 09/01/21 03:23 Hgb 9.2 g/dL (12.0-15.0) L 09/01/21 03:23 Hct 27.9 % (36.0-45.0) L 09/01/21 03:23 Plt Count 334 K/uL (152-406) 09/01/21 03:23 Sodium 140 mmol/L (136-145) 09/01/21 03:23 Potassium 3.7 mmol/L (3.5-5.1) 09/01/21 03:23 BUN 7 mg/dL (7-18) 09/01/21 03:23 Creatinine 0.70 mg/dL (0.55-1.3) 09/01/21 03:23 Glucose 97 mg/dL (74-106) 09/01/21 03:23 Magnesium 2.1 mg/dL (1.8-2.4) 08/31/21 06:01 Total Bilirubin 0.2 mg/dL (0.2-1.0) 08/30/21 05:21 AST 17 U/L (15-37) 08/30/21 05:21 ALT 20 U/L (12-78) 08/30/21 05:21 Alkaline Phosphatase 124 U/L (45-117) H 08/30/21 05:21 Lipase 49 U/L (73-393) L 08/28/21 11:05 Home Medications: Amlodipine [Norvasc*] 2.5 mg PO DAILY 11/04/15 Cholecalciferol (Vitamin D3) [Vitamin D3] 2 tab PO DAILY 11/04/15 Cyanocobalamin [Vitamin B-12*] 1,000 mcg PO DAILY 11/04/15 Lactobacillus Combo No.13 [Probiotic Pearls Complete] 1 each PO DAILY 11/04/15 Lisinopril [Zestril] 2.5 mg PO DAILY 11/04/15 Omeprazole [Prilosec] 40 mg PO BID 11/04/15 Venlafaxine HCl [Effexor XR] 150 mg PO DAILY PRN 11/04/15 levoFLOXacin [Levaquin] 750 mg PO DAILY 7 Days #7 tab 09/01/21 New Medications: levoFLOXacin [Levaquin] 750 mg PO DAILY 7 Days #7 tab Physician Discharge Instructions: PROBLEM: (list out Acute Problems for the Current visit) GOAL: Clear understanding of disease process INSTRUCTIONS: Patient was found to have bilateral pyelonephritis. She was empirically treated with IV rocephin and had improvement of her symptoms. She was afebrile for ~24hrs when she developed another fever on day 3 of antibiotics. She did not have any new or worsening symptoms, and was otherwise continuing to clinically improve. Inflammatory markers continued to improve as well. Rocephin was switched to Levaquin. Patient remained afebrile and was feeling much better. Discharged home to complete 7 more days of levaquin. Urine culture: mixed katerin Blood culturs: no growth Follow up with PCP within 1 week. If you have worsening symptoms, please go to the ER. Diet: Regular Activity: As Tolerated DME DME: Date Ordered: Name of Company: [employer] Services Needed: Name of Company: Date or Referral: IMMUNIZATION Influenza Vaccine Indicated: No Influenza Vaccine Given: Date Given: Pneumonia Vaccine Indicated: No Pneumonia Vaccine Given: Date Given: Followup: Merlene Vance DO [Primary Care Provider] - Time spent managing pt's care (in minutes): 45
== END 2021-09-01 14:01 | disposition home or self-care (01) | DRG 690 ==
LOC: ER 10:15 → ERHOLD 14:38 → 2ND 18:41
PROVIDERS: ADMIT Hospitalist; ATTEND Hospitalist
DX: N10 Acute pyelonephritis (principal); M32.9 Systemic lupus erythematosus, unspecified; E87.6 Hypokalemia; I10 Essential (primary) hypertension; Z20.822 Contact with and (suspected) exposure to COVID-19
CPT/HCPCS: 0240U; 36415; 71045; 71046; 74177; 80048; 80053; 80076; 81003; 81015; 83605; 83690; 83735; 84132; 84145; 85025; 85027; 86140; 87040; 87086; 87088; 96374; 96375; 99285; J1650; J2270; J2550; J3480; J7030; J7050; Q9967; U0003

== ENCOUNTER 2023-06-13 15:31 | Emergency (ER) | payer BC ==
--- OUTSIDE RECORDS SUMMARY | 2023-06-13 16:10 | XMS REPORT | Continuity of Care Document ---
:1965 Author Organization [facility] t Address [address] [place] [address] [place] [id number] Care Team Providers Name Role Phone MULLIGAN, KINGA LY Primary Care Physician Unavailable Kinga Mulligan L Attending Clinician Unavailable MATTHIAS ANTUNEZ Attending Clinician Unavailable [id number] Attending Clinician Unavailable LON BOYER Attending Clinician Unavailable NAILA FERGUSON Attending Clinician Unavailable JUAN M HESTER Attending Clinician Unavailable MILO TSANG Attending Clinician Unavailable SARITHA BOWLES Attending Clinician Unavailable MD PAULA Attending Clinician Unavailable SUKUMAR Attending Clinician Unavailable [email or web address] Attending Clinician Unavailable [id number] Attending Clinician Unavailable ROCAEL VAZQUEZ Attending Clinician Unavailable DARRON SANDERSON Attending Clinician Unavailable NHAN MEDINA Attending Clinician Unavailable TOMOGRAPHY, [facility] Attending Clinician Unav israable SARAH RODRÍGUEZ Attending Clinician Unavailable FAB LUNA Attending Clinician Unavailable JESS AQUINO Attending Clinician Unavailable Jess Barron Attending Clinician [email or web address] Admitting Clinician Unavailable Payers Payer Name Policy Type Policy Number Effective Date Expiration Date [facility] [id number] 2022 [place] (ERS-BCBS 00:00:00 CAPITATED) Blue Cross Blue 6 [id number] 2017 [employer] of [place] 00:00:00 [facility] BCBS 2 [id number] 2022 00:00:00 [facility] [id number] 2017 00:00:00 Problems Condition Condition Condition Status Onset Resolution Last Treating Co mments Source Name Details Category Date Date Treatment Clinician Date Menopausal Menopausal Disease Active K elsey and and 4-11 Seybold postmenopa postmenopa 00:00: - usal usal 00 Externa disorder disorder l Essential Essential Disease Active Terell sey hypertensi hypertensi 4-11 Se ybold on on 00:00: - 00 Externa l Gastro-eso Gastro-eso Disease Active K elsey phageal phageal 4-11 Seybold reflux reflux 00:00: - disease disease 00 Externa without without l esophagiti esophagiti s s Menopausal Menopausal Disease Active K elsey and and 4-11 Seybold postmenopa postmenopa 00:00: - usal usal 00 Externa disorder disorder l Other Other Disease Active Yvonne chronic chronic 4-11 Seybold pain pain 00:00: - 00 Externa l Peripheral Peripheral Disease Active K elsey edema edema 4-11 Seybold 00:00: - 00 Externa l Stricture Stricture Disease Active Terell sey of of 4-11 Seybold esophagus esophagus 00:00: - 00 Externa l Tear of Tear of Disease Active Yvonne right right 4-11 Seybold rotator rotator 00:00: - cuff cuff 00 Externa l Lupus Lupus Disease Active Yvonne (multi (multi 1-10 Seybold HCC) HCC) 00:00: - 00 Externa l No known No known Disease Unive rs active active ity of problems problems [facility] Bruising Bruising Problem Commo n [facility] [id number] Bilateral Problem Com mon lower [facility] extremity - [facility] edema [facility] Arthralgia Arthralgia Problem C ommon [facility] [id number] Tear of Problem Commo n right [facility] rotator - [facility] extent, Center unspecifie d whether traumatic [id number] Rheumatoid Problem Co mmon arthritis Spirit of hand, - [facility]I unspecifie [facility] laterality Medica l , Center unspecifie d rheumatoid factor presence [id number] Pain, Problem Commo n [id number] joint, Spirit shoulder, - [facility] right [facility] [id number] Systemic Problem Commo n lupus Spirit erythemato - [facility] lindsay, [facility] SLE Medical type, Center unspecifie d organ involvemen t status [id number] Tenosynovi Problem Com mon tis of Spirit right - [facility] shoulder [facility] Allergies, Adverse Reactions, Alerts Allergy Allergy Status Severity Reaction(s) Onset Inactive Treating Comm ents Source Name Type Date Date Clinician Erythrom Propensi Active Nausea and Ke lsey ycin ty to Vomiting - Seybold Base adverse 00:00: - reaction 00 Externa s l Sulfa Propensi Active Shortness of Ke lsey Drugs ty to Breath 07-14 Seybold adverse 00:00: - reaction 00 Externa s l Erythrom Propensi Active Unknown - Uni vers ycin ty to See comments 2-15 ity of adverse 00:00: [place] reaction 00 [facility] s [facility] Sulfa Propensi Active Unknown - Unive rs Dyne ty to See comments 2-15 ity of adverse 00:00: [place] reaction 00 [facility] s [facility] SULFA DRUG Active Unknown-Cmnt Univ ers DYNE 2-15 ity of 00:00: [place] 00 [facility] ERYTHROM DRUG Active Unknown-Cmnt Un jose armando YCIN 2-15 ity of 00:00: [place] 00 [facility] Erythrom Propensi Active Nausea and Other Ke lsey ycin ty to Vomiting - reaction( Seybo ld Base adverse 00:00: s): - reaction 00 Nausea/Vo Exter na s miting/Hi l ves sulfamet sulfamet Active hives,vomiti Common hoxazole hoxazole ng Spirit / / - CHI trimetho trimetho [facility] erythrom erythrom Active Vomiting Comm on ycin ycin Spirit - CHI [facility] NO KNOWN Drug Active Univers ALLERGIE Class ity of S [facility] Social History Social Habit Start Date Stop Date Quantity Comments Source Exposure to Not sure University SARS-CoV-2 (event) [facility] History of tobacco Cigarette Smoker Yvonne Martinez - use External Gender identity Yvonne renteria - External Sexual orientation Yvonne Martinez - External Alcohol Comment 2023-05-10 2023-05-10 1 shot nightly Marleni Martinez - 00:00:00 00:00:00 External History of Social 2023-05-10 2023-05-10 Yvonne Martinez - function 00:00:00 00:00:00 External Alcohol intake 2023-05-10 2023-05-10 1 /d Yvonne gupta - 00:00:00 00:00:00 External Sex [birth year] Yvonne renteria - 00:00:00 00:00:00 External Smoking Status Start Date Stop Date Source Unknown if ever smoked [facility] Ex-smoker 2022-10-20 00:00:00 2022-10-20 00:00:00 Yvonne alexandraalonso - External Never Smoker Common Play With Pictures / [employer] - [employer] [facility] nter Medications Ordered Filled Start Stop Current Ordering Indication Dosage Frequency Signature Comments Components Source Medication Medication Date Date Medication? Clinician (SIG) Name Name Amoxicillin 2022-07 Yes [id number] 1{tbl} Take 1 Yvonne -Pot 2-01 tablet by Seybold Clavulanate 00:00: mouth 2 - 875-125 MG 00 times Externa oral Tablet daily. l Pseudoeph-B 2022-07 Yes [id number] 10mL Take 10 mL Yvonne romphen-DM 2-01 by mouth 4 Sey bold 30-2-10 00:00: times - MG/5ML oral 00 daily. Faculty Physician a Syrup l Amoxicillin 2022-07 Yes [id number] 1{tbl} Take 1 Yvonne -Pot 2-01 tablet by Seybold Clavulanate 00:00: mouth 2 - 875-125 MG 00 times Externa oral Tablet daily. l Pseudoeph-B 2022-07 Yes [id number] 10mL Take 10 mL Yvonne romphen-DM 2-01 by mouth 4 Sey bold 2-10 00:00: times - MG/5ML oral 00 daily. Faculty Physician a Syrup l Benzonatate 2022-07 Yes [id number] 200mg Q.[id number] Take 1 Yvonne 200 MG oral 1-28 [id number] capsule Seybold Capsule 00:00: 3D (200 mg - 00 total) by Externa mouth 3 l times daily as needed for cough. Benzonatate 2022-07 Yes [id number] 200mg Q.[id number] Take 1 Yvonne 200 MG oral 1-28 [id number] capsule Seybold Capsule 00:00: 3D (200 mg - 00 total) by Externa mouth 3 l times daily as needed for cough. Omeprazole 2022-07 Yes 40mg Take 1 Kelse y 40 MG oral 1-16 capsule Seybol d Delayed 00:00: (40 mg - Release 00 total) by Externa Capsule mouth l daily. Omeprazole 2022-07 Yes 40mg Take 1 Kelse y 40 MG oral 1-16 capsule Seybol d Delayed 00:00: (40 mg - Release 00 total) by Externa Capsule mouth l daily. Amoxicillin 2022-07 Yes [id number] 1{tbl} Take 1 Yvonne -Pot 0-13 tablet by Seybold Clavulanate 00:00: mouth 2 - 875-125 MG 00 times Externa oral Tablet daily. l Benzonatate 2022-07 Yes [id number] 200mg Q.[id number] Take 1 Yvonne 200 MG oral 0-13 [id number] capsule Seybold Capsule 00:00: 3D (200 mg - 00 total) by Externa mouth 3 l times daily as needed for cough. Benzonatate 2022-07 Yes [id number] 200mg Q.[id number] Take 1 Yvonne 200 MG oral 0-13 [id number] capsule Seybold Capsule 00:00: 3D (200 mg - 00 total) by Externa mouth 3 l times daily as needed for cough. Amoxicillin 2022-07- No [id number] 1{tbl} Take 1 Yvonne -Pot 0-13 10-30 tablet by Seybold Clavulanate 00:00: 00:00 mouth 2 - 875-125 MG 00 :00 times Externa oral Tablet daily. l hydroCHLORO 2022-07 Yes 12.5mg Take 1 Ke lsey thiazide 0-11 capsule Seybold 12.5 MG 00:00: (12.5 mg - oral 00 total) by Externa Capsule mouth l daily. hydroCHLORO 2023-1 Yes 12.5mg Take 1 Ke lsey thiazide 0-11 capsule Seybold 12.5 MG 00:00: (12.5 mg - oral 00 total) by Externa Capsule mouth l daily. hydroCHLORO 2023-1 Yes 12.5mg Take 1 Ke lsey thiazide 0-11 capsule Seybold 12.5 MG 00:00: (12.5 mg - oral 00 total) by Externa Capsule mouth l daily. hydroCHLORO 2023-1 Yes 12.5mg Take 1 Ke lsey thiazide 0-11 capsule Seybold 12.5 MG 00:00: (12.5 mg - oral 00 total) by Externa Capsule mouth l daily. Duloxetine 3-0 Yes [id number] 30mg Take 1 Yvonne HCl 30 MG 9-13 capsule Seybold oral Cap DR 00:00: (30 mg - Particles 00 total) by Exter na mouth l daily. Lisinopril 3-0 Yes [id number] 2.5mg Take 1 Yvonne 2.5 MG oral 9-13 tablet Seybol d Tablet 00:00: (2.5 mg - 00 total) by Externa mouth l daily. Duloxetine 3-0 Yes [id number] 30mg Take 1 Yvonne HCl 30 MG 9-13 capsule Seybold oral Cap DR 00:00: (30 mg - Particles 00 total) by Exter na mouth l daily. Lisinopril 2023-0 Yes [id number] 2.5mg Take 1 Yvonne 2.5 MG oral 9-13 tablet Seybol d Tablet 00:00: (2.5 mg - 00 total) by Externa mouth l daily. Duloxetine 3-0 Yes [id number] 30mg Take 1 Yvonne HCl 30 MG 9-13 capsule Seybold oral Cap DR 00:00: (30 mg - Particles 00 total) by Exter na mouth l daily. Lisinopril 2023-0 Yes [id number] 2.5mg Take 1 Yvonne 2.5 MG oral 9-13 tablet Seybol d Tablet 00:00: (2.5 mg - 00 total) by Externa mouth l daily. Duloxetine 3-0 Yes [id number] 30mg Take 1 Yvonne HCl 30 MG 9-13 capsule Seybold oral Cap DR 00:00: (30 mg - Particles 00 total) by Exter na mouth l daily. Lisinopril 2023-0 Yes [id number] 2.5mg Take 1 Yvonne 2.5 MG oral 9-13 tablet Seybol d Tablet 00:00: (2.5 mg - 00 total) by Externa mouth l daily. Duloxetine 2023-0 Yes [id number] 30mg Take 1 Yvonne HCl 30 MG 9-13 capsule Seybold oral Cap DR 00:00: (30 mg - Particles 00 total) by Exter na mouth l daily. Lisinopril 2023-0 Yes [id number] 2.5mg Take 1 Yvonne 2.5 MG oral 9-13 tablet Seybol d Tablet 00:00: (2.5 mg - 00 total) by Externa mouth l daily. Hydroxychlo 2023-0 Yes [id number] 300mg Take 1.5 Yvonne roquine 8-18 [id number] tablets Seybold Sulfate 200 00:00: (300 mg - MG oral 00 total) by Externa Tablet mouth l daily Hydroxychlo 2023-0 Yes [id number] 300mg Take 1.5 Yvonne roquine 8-18 [id number] tablets Seybold Sulfate 200 00:00: (300 mg - MG oral 00 total) by Externa Tablet mouth l daily Hydroxychlo 2023-0 Yes [id number] 300mg Take 1.5 Yvonne roquine 8-18 [id number] tablets Seybold Sulfate 200 00:00: (300 mg - MG oral 00 total) by Externa Tablet mouth l daily Hydroxychlo 2023-0 Yes [id number] 300mg Take 1.5 Yvonne roquine 8-18 [id number] tablets Seybold Sulfate 200 00:00: (300 mg - MG oral 00 total) by Externa Tablet mouth l daily Hydroxychlo 2023-0 Yes [id number] 300mg Take 1.5 Yvonne roquine 8-18 [id number] tablets Seybold Sulfate 200 00:00: (300 mg - MG oral 00 total) by Externa Tablet mouth l daily Omeprazole 3-0 Yes 40mg TAKE 1 Kelse y 40 MG oral 8-14 CAPSULE(40 Sey bold Delayed 00:00: MG) BY - Release 00 MOUTH Externa Capsule DAILY l Omeprazole 0 Yes 40mg TAKE 1 Kelse y 40 MG oral 8-14 CAPSULE(40 Sey bold Delayed 00:00: MG) BY - Release 00 MOUTH Externa Capsule DAILY l Omeprazole 0 Yes 40mg TAKE 1 Kelse y 40 MG oral 8-14 CAPSULE(40 Sey bold Delayed 00:00: MG) BY - Release 00 MOUTH Externa Capsule DAILY l hydroCHLORO 0 Yes TAKE 1 Soumya ey thiazide 7-03 CAPSULE(12 Seybo ld 12.5 MG 00:00: .5 MG) BY - oral 00 MOUTH Externa Capsule DAILY l hydroCHLORO 0 Yes TAKE 1 Soumya ey thiazide 7-03 CAPSULE(12 Seybo ld 12.5 MG 00:00: .5 MG) BY - oral 00 MOUTH Externa Capsule DAILY l Lisinopril Yes [id number] 2.5mg Take 1 Yvonne 2.5 MG oral 6-29 tablet Seybol d Tablet 00:00: (2.5 mg - 00 total) by Externa mouth l daily Duloxetine Yes [id number] 30mg Take 1 Yvonne HCl 30 MG 6-29 capsule Seybold oral Cap DR 00:00: (30 mg - Particles 00 total) by Exter na mouth l daily Belimumab Yes [id number] 200mg Inject 1 Yvonne (Benlysta) 6-11 mL (200 mg Sey bold 200 MG/ML 00:00: total) - subcutaneou 00 into the Exte rna s Solution skin once l Auto-inject a week or Belimumab 0 Yes [id number] 200mg Inject 1 Yvonne (Benlysta) 6-11 mL (200 mg Sey bold 200 MG/ML 00:00: total) - subcutaneou 00 into the Exte rna s Solution skin once l Auto-inject a week or Belimumab 2022-0 Yes [id number] 200mg Inject 1 Yvonne (Benlysta) 6-11 mL (200 mg Sey bold 200 MG/ML 00:00: total) - subcutaneou 00 into the Exte rna s Solution skin once l Auto-inject a week or Belimumab Yes [id number] 200mg Inject 1 Yvonne (Benlysta) 6-11 mL (200 mg Sey bold 200 MG/ML 00:00: total) - subcutaneou 00 into the Exte rna s Solution skin once l Auto-inject a week or Belimumab Yes [id number] 200mg Inject 1 Yvonne (Benlysta) 6-11 mL (200 mg Sey bold 200 MG/ML 00:00: total) - subcutaneou 00 into the Exte rna s Solution skin once l Auto-inject a week or Belimumab 0 Yes [id number] 200mg Inject 1 Yvonne (Benlysta) 6-11 mL (200 mg Sey bold 200 MG/ML 00:00: total) - subcutaneou 00 into the Exte rna s Solution skin once l Auto-inject a week or Methylpredn 2022- No [id number] 80mg Yvonne isolone 12-15 Seybold Acetate 16:00: 15:54 - (DEPO-MEDRO 00 :00 Externa L) [80 l mg/ml] Methylpredn 2022- No [id number] 80mg 80 mg, Yvonne isolone 12-15 intramuscu Seybo ld Acetate 16:00: 15:54 lar, ONCE, - (DEPO-MEDRO 00 :00 On Tu Faculty Physician a L) [80 12/15/22 at l mg/ml] 1100, For 1 dose Hydroxychlo 2022-0 Yes [id number] 300mg Take 1.5 Yvonne roquine - 133400 tablets Seybold Sulfate 200 00:00: (300 mg - MG oral total) by Externa Tablet mouth l daily Hydroxychlo 2022-0 Yes [id number] 300mg Take 1.5 Yvonne roquine - [id number] tablets Seybold Sulfate 200 00:00: (300 mg - MG oral 00 total) by Externa Tablet mouth l daily Omeprazole 3-0 Yes 40mg Take 1 Kelse y 40 MG oral 5-15 capsule Seybol d Delayed 00:00: (40 mg - Release total) by Externa Capsule mouth l daily Omeprazole 3-0 Yes 40mg Take 1 Kelse y 40 MG oral 5-15 capsule Seybol d Delayed 00:00: (40 mg - Release total) by Externa Capsule mouth l daily Omeprazole 2023-0 Yes Yvonne 40 MG oral 4-11 Seybold Delayed 14:54: - Release 36 Externa Capsule l Desonide Yes Apply BID Yvonne 0.05 % 4-11 sparingly Seybold apply 00:00: to rash of - externally 00 face, Externa Ointment armpits or l groin Mon-Fri PRN. predniSONE Yes Take 2 po Yvonne (DELTASONE) 4-11 QAM x 4 Seybo ld 10 MG oral 00:00: days, then - tablet 00 take 1 po Externa QAM x 3 l days for lupus flare. Triamcinolo Yes Apply Yvonne ne 4-11 sparingly Seybold Acetonide 00:00: BID to - 0.1 % apply 00 rash of Exter na externally body PRN. l Ointment Not for face or folds. Desonide Yes Apply BID Yvonne 0.05 % 4-11 sparingly Seybold apply 00:00: to rash of - externally 00 face, Externa Ointment armpits or l groin Mon-Fri PRN. predniSONE 2022- Yes Take 2 po Yvonne (DELTASONE) 4-11 QAM x 4 Seybo ld 10 MG oral 00:00: days, then - tablet 00 take 1 po Externa QAM x 3 l days for lupus flare. Triamcinolo Yes Apply Yvonne ne 4-11 sparingly Seybold Acetonide 00:00: BID to - 0.1 % apply 00 rash of Exter na externally body PRN. l Ointment Not for face or folds. Desonide Yes Apply BID Yvonne 0.05 % 4-11 sparingly Seybold apply 00:00: to rash of - externally 00 face, Externa Ointment armpits or l groin Mon-Fri PRN. predniSONE 2022- Yes Take 2 po Yvonne (DELTASONE) 4-11 QAM x 4 Seybo ld 10 MG oral 00:00: days, then - tablet 00 take 1 po Externa QAM x 3 l days for lupus flare. Triamcinolo Yes Apply Yvonne ne 4-11 sparingly Seybold Acetonide 00:00: BID to - 0.1 % apply 00 rash of Exter na externally body PRN. l Ointment Not for face or folds. Desonide Yes Apply BID Yvonne 0.05 % 4-11 sparingly Seybold apply 00:00: to rash of - externally 00 face, Externa Ointment armpits or l groin Mon-Fri PRN. Triamcinolo Yes Apply Yvonne ne 4-11 sparingly Seybold Acetonide 00:00: BID to - 0.1 % apply 00 rash of Exter na externally body PRN. l Ointment Not for face or folds. Desonide Yes Apply BID Yvonne 0.05 % 4-11 sparingly Seybold apply 00:00: to rash of - externally 00 face, Externa Ointment armpits or l groin Mon-Fri PRN. Triamcinolo Yes Apply Yvonne ne 4-11 sparingly Seybold Acetonide 00:00: BID to - 0.1 % apply 00 rash of Exter na externally body PRN. l Ointment Not for face or folds. Desonide Yes Apply BID Yvonne 0.05 % 4-11 sparingly Seybold apply 00:00: to rash of - externally 00 face, Externa Ointment armpits or l groin Mon-Fri PRN. Triamcinolo Yes Apply Yvonne ne 4-11 sparingly Seybold Acetonide 00:00: BID to - 0.1 % apply 00 rash of Exter na externally body PRN. l Ointment Not for face or folds. Desonide Yes Apply BID Yvonne 0.05 % 4-11 sparingly Seybold apply 00:00: to rash of - externally 00 face, Externa Ointment armpits or l groin Mon-Fri PRN. Triamcinolo 0 Yes Apply Yvonne ne 4-11 sparingly Seybold Acetonide 00:00: BID to - 0.1 % apply 00 rash of Exter na externally body PRN. l Ointment Not for face or folds. Desonide Yes Apply BID Yvonne 0.05 % 4-11 sparingly Seybold apply 00:00: to rash of - externally 00 face, Externa Ointment armpits or l groin Mon-Fri PRN. predniSONE 2022-0 Yes Take 2 po Yvonne (DELTASONE) 4-11 QAM x 4 Seybo ld 10 MG oral 00:00: days, then - tablet 00 take 1 po Externa QAM x 3 l days for lupus flare. Triamcinolo Yes Apply Yvonne ne 4-11 sparingly Seybold Acetonide 00:00: BID to - 0.1 % apply 00 rash of Exter na externally body PRN. l Ointment Not for face or folds. predniSONE 0 202- No Take 2 po Yvonne (DELTASONE) 4-11 10-13 QAM x 4 Seyb old 10 MG oral 00:00: 00:00 days, then - tablet 00 :00 take 1 po Externa QAM x 3 l days for lupus flare. Duloxetine 2022-0 Yes 30mg Take 1 Kelse y HCl 30 MG 4-03 capsule Seybold oral Cap DR 00:00: (30 mg - Particles 00 total) by Exter na mouth l daily Duloxetine 2022-0 Yes 30mg Take 1 Kelse y HCl 30 MG 4-03 capsule Seybold oral Cap DR 00:00: (30 mg - Particles 00 total) by Exter na mouth l daily Lisinopril 2022-0 Yes 2.5mg Take 1 Soumya ey 2.5 MG oral 3-31 tablet Seybol d Tablet 00:00: (2.5 mg - 00 total) by Externa mouth l daily hydroCHLORO 2022-0 Yes 12.5mg Take 1 Ke lsey thiazide 3-31 capsule Seybold 12.5 MG 00:00: (12.5 mg - oral 00 total) by Externa Capsule mouth l daily Lisinopril 2022-0 Yes 2.5mg Take 1 Soumya ey 2.5 MG oral 3-31 tablet Seybol d Tablet 00:00: (2.5 mg - 00 total) by Externa mouth l daily hydroCHLORO 2023-0 Yes 12.5mg Take 1 Ke lsey thiazide 3-31 capsule Seybold 12.5 MG 00:00: (12.5 mg - oral 00 total) by Externa Capsule mouth l daily Cholecalcif 2022-0 2022- No [id number] 90961L Take 1 Yvonne tisha 1.25 2-23 04-11 capsule Seybol d MG ( 00:00: 00:00 (50,000 - UT) oral 00 :00 units Externa Capsule total) by l mouth twice a week for 8 doses Omeprazole 2022-0 Yes Yvonne 40 MG oral 2-21 Seybold Delayed 16:08: - Release 16 Externa Capsule l Lisinopril 2022-0 Yes Yvonne 2.5 MG oral 2-21 Seybold Tablet 16:08: - 16 Externa l hydroCHLORO 2022-0 Yes 1{tbl} Take 1 Ke lsey thiazide 2-21 tablet by Seybol d 12.5 MG 16:08: mouth - oral 16 daily Externa Capsule l Fluocinonid 2022-0 2022- No [id number] Apply 1 Yvonne e 0.05 % 2-21 04-11 applicatio Seyb old apply 00:00: 00:00 n. - externally 00 :00 topically Exte rna Cream 2 times l daily To affected area as needed Hydroxychlo 2022-0 Yes 300mg Take 1.5 K elsey roquine 2-04 tablets Seybold Sulfate 200 00:00: (300 mg - MG oral 00 total) by Externa Tablet mouth l daily Hydroxychlo 2022-0 2022- No 300mg Take 1.5 Yvonne roquine 2-04 06-06 tablets Seybold Sulfate 200 00:00: 00:00 (300 mg - MG oral 00 :00 total) by Externa Tablet mouth l daily hydroCHLORO 3-0 Yes 1{tbl} Take 1 Ke lsey thiazide 1-10 tablet by Seybol d 12.5 MG 09:16: mouth - oral 20 daily Externa Capsule l Omeprazole 2022-0 Yes Yvonne 40 MG oral 1-10 Seybold Delayed 09:08: - Release 15 Externa Capsule l Lisinopril 2022-0 Yes Yvonne 2.5 MG oral 1-10 Seybold Tablet 09:08: - 15 Externa l Duloxetine 2022-0 Yes 30mg Take 30 mg K elsey HCl 30 MG 1-05 by mouth Seybol d oral Cap 00:00: daily - Particles 00 Externa l Duloxetine 2022-0 Yes 30mg Take 30 mg K elsey HCl 30 MG 1-05 by mouth Seybol d oral Cap 00:00: daily - Particles 00 Externa l Duloxetine 2022-0 Yes Yvonne HCl 30 MG 1-03 Seybold oral Cap 00:00: - Particles 00 Externa l Duloxetine 2022-0 Yes Yvonne HCl 30 MG 1-[address] 00:00: - Particles 00 Externa l Duloxetine 2022-0 2022- No Yvonne HCl 30 MG 03 04-11 Seybold oral Cap 00:00: 00:00 - Particles 00 :00 Externa l Rocephin Rocephin 2021-0 No 1g Commo n (Ceftriaxon (Ceftriaxon 2-17 S pirit e) e) 00:00: - [facility] 00 [facility] Rocephin Rocephin 2021-0 No 1g Commo n (Ceftriaxon (Ceftriaxon 2-17 S pirit e) e) 00:00: - [facility]I 00 [facility] Rocephin Rocephin 2-0 No 1g Commo n (Ceftriaxon (Ceftriaxon 2-17 S pirit e) e) 00:00: - [facility]I 00 [facility] Rocephin Rocephin 2-0 No 1g Commo n (Ceftriaxon (Ceftriaxon 2-17 S pirit e) e) 00:00: - [facility]I 00 [facility] Rocephin Rocephin 2-0 No 1g Commo n (Ceftriaxon (Ceftriaxon 2-17 S pirit e) e) 00:00: - [facility]I 00 [facility] Rocephin Rocephin 2-0 No 1g Commo n (Ceftriaxon (Ceftriaxon 2-17 S pirit e) e) 00:00: - [facility]I 00 [facility] Rocephin Rocephin 2-0 No 1g Commo n (Ceftriaxon (Ceftriaxon 2-17 S pirit e) e) 00:00: - [facility]I 00 [facility] Rocephin Rocephin 0 No 1g Commo n (Ceftriaxon (Ceftriaxon 2-17 S pirit e) e) 00:00: - CHI [facility] Rocephin Rocephin 0 No 1g Commo n (Ceftriaxon (Ceftriaxon 2-17 S pirit e) e) 00:00: - [facility]I 00 [facility] Ciprofloxac Ciprofloxac 2021- No 1{table BID Ciprofloxa in HCl 500 in HCl 500 08-28-24 t} ruel HCl MG MG 00:00: 00:00 500 MG 00 :00 dextrometho 2021- No 5mL 5 mL, [facility] ers rphan-guaif 08-26 Oral, ity of enesin 22:45: 21:38 ONCE, 1 Beka (ROBITUSSIN 00 :00 dose, On Medi jacqueline DM) 10-100 Tue Branch mg/5 mL 08/26/21 at solution 5 1645, mL Routine ondansetron 2021- No 4mg 4 mg, [facility] ers (ZOFRAN-ODT 08-26 Oral, ity of ) 22:30: 21:39 ONCE, 1 Beka disintegrat 00 :00 dose, On Medi jacqueline ing tablet Tue Branch 4 mg 08/26/21 at 1630, Routine acetaminoph 2021- No 650mg 650 mg, U nivers en 08-26 Oral, ity of (TYLENOL) 21:45: 20:44 ONCE, 1 Lorenzoa s tablet 650 00 :00 dose, On Medic al mg Tue Branch 08/26/21 at 1545, KATRIN ondansetron 2021-0 Yes [id number] 4mg Take 1 Univers 4 mg 2-15 tablet by ity of disintegrat 00:00: mouth [place] ing tablet 00 every 8 Medica l (eight) Branch hours as needed for Nausea and Vomiting (N/V). Ondansetron 2021-0 Yes 4mg Q.[id number] Take 4 mg Yvonne (ZOFRAN) 4 -15 [id number] by mouth Seybold MG oral 00:00: 3D every 8 - TABLET 00 hours as Externa DISPERSIBLE needed l Ondansetron 2021-0 2022- No 4mg Q.[id number] Take 4 mg Yvonne (ZOFRAN) 4 2-15 - [id number] by mouth Seybold MG oral 00:00: 00:00 3D every 8 - TABLET 00 :00 hours as Externa DISPERSIBLE needed l Omeprazole Omeprazole Yes Na Mulligan 1 capsule [facility] Lisinopril Lisinopril Yes Na Mulligan 1 tablet [facility] Hydroxychlo Hydroxychlo Yes Na Mulligan TAKE 1 Common roquine roquine TABLET BY Spir it Sulfate Sulfate MOUTH ONCE - C HI DAILY WITH [facility] OR [facility] Lisinopril Lisinopril Yes Na Mulligan 1 tablet [facility] Omeprazole Omeprazole Yes Na Mulligan 1 capsule [facility] Vitamin Vitamin Yes Na Mulligan 1 tablet Co mmon B-12 B-12 [facility] Hydrochloro Hydrochloro Yes Na Mulligan 1 tablet Common thiazide thiazide in the [facility] Duloxetine Duloxetine Yes Na Mulligan TAKE ONE Common HCl HCl CAPSULE BY [facility] - [facility] EVERY DAY [facility] Furosemide Furosemide Yes Na Mulligan 1 tablet [facility] Hydrochloro Hydrochloro Yes Na Mulligan 1 tablet Common thiazide thiazide in the [facility] Folic Acid Folic Acid Yes Na Mulligan 1 tablet [facility] Aspirin 81 Aspirin 81 Yes Na Mulligan 1 tablet [facility] Furosemide Furosemide Yes Na Mulligan TAKE 1 Common TABLET BY [facility] MOUTH ONCE - [facility] DAILY [facility] Vitamin Vitamin No 1{table QD Vitamin B-12 1000 B-12 1000 t} B-12 1000 MCG MCG MCG hydroCHLORO hydroCHLORO No 1{table QD hydroCHLOR thiazide thiazide t_in_ Othiazide 12.5 MG 12.5 MG e_morni 12.5 MG ng} Hydroxychlo Hydroxychlo No Hydroxychl roquine roquine oroquine Sulfate 200 Sulfate 200 Sulfate MG MG 200 MG Furosemide Furosemide No 1{table QD Furosemide 20 MG 20 MG t} 20 MG Folic Acid Folic Acid No 1{table QD Folic Acid 1 MG 1 MG t} 1 MG Lisinopril Lisinopril No 1{table QD Lisinopril 2.5 MG 2.5 MG t} 2.5 MG hydroCHLORO hydroCHLORO No hydroCHLOR thiazide thiazide Othiazide 12.5 MG 12.5 MG 12.5 MG DULoxetine DULoxetine No DULoxetine HCl 30 MG HCl 30 MG HCl 30 MG Omeprazole Omeprazole No 1{capsu QD Omeprazole 40 MG 40 MG le} 40 MG Aspirin 81 Aspirin 81 No 1{table QD Aspirin 81 81 MG 81 MG t} 81 MG Folic Acid Folic Acid No 1{table QD Folic Acid 1 MG 1 MG t} 1 MG Lisinopril Lisinopril No Lisinopril 2.5 MG 2.5 MG 2.5 MG Hydroxychlo Hydroxychlo No Hydroxychl roquine roquine oroquine Sulfate 200 Sulfate 200 Sulfate MG MG 200 MG Aspirin 81 Aspirin 81 No 1{table QD Aspirin 81 81 MG 81 MG t} 81 MG hydroCHLORO hydroCHLORO No hydroCHLOR thiazide thiazide Othiazide 12.5 MG 12.5 MG 12.5 MG Furosemide Furosemide No 1{table QD Furosemide 20 MG 20 MG t} 20 MG Vitamin Vitamin No 1{table QD Vitamin B-12 1000 B-12 1000 t} B-12 1000 MCG MCG MCG Omeprazole Omeprazole No Omeprazole 40 MG 40 MG 40 MG DULoxetine DULoxetine No DULoxetine HCl 30 MG HCl 30 MG HCl 30 MG Vitamin Vitamin No 1{table QD Vitamin B-12 1000 B-12 1000 t} B-12 1000 MCG MCG MCG hydroCHLORO hydroCHLORO No hydroCHLOR thiazide thiazide Othiazide 12.5 MG 12.5 MG 12.5 MG DULoxetine DULoxetine No DULoxetine HCl 30 MG HCl 30 MG HCl 30 MG Folic Acid Folic Acid No 1{table QD Folic Acid 1 MG 1 MG t} 1 MG Furosemide Furosemide No 1{table QD Furosemide 20 MG 20 MG t} 20 MG Lisinopril Lisinopril No Lisinopril 2.5 MG 2.5 MG 2.5 MG Hydroxychlo Hydroxychlo No Hydroxychl roquine roquine oroquine Sulfate 200 Sulfate 200 Sulfate MG MG 200 MG Omeprazole Omeprazole No Omeprazole 40 MG 40 MG 40 MG Aspirin 81 Aspirin 81 No 1{table QD Aspirin 81 81 MG 81 MG t} 81 MG hydroCHLORO hydroCHLORO No hydroCHLOR thiazide thiazide Othiazide 12.5 MG 12.5 MG 12.5 MG Lisinopril Lisinopril No 1{table QD Lisinopril 2.5 MG 2.5 MG t} 2.5 MG Omeprazole Omeprazole No Omeprazole 40 MG 40 MG 40 MG Hydroxychlo Hydroxychlo No Hydroxychl roquine roquine oroquine Sulfate 200 Sulfate 200 Sulfate MG MG 200 MG Vitamin Vitamin No 1{table QD Vitamin B-12 1000 B-12 1000 t} B-12 1000 MCG MCG MCG Lisinopril Lisinopril No Lisinopril 2.5 MG 2.5 MG 2.5 MG Furosemide Furosemide No 1{table QD Furosemide 20 MG 20 MG t} 20 MG Aspirin 81 Aspirin 81 No 1{table QD Aspirin 81 81 MG 81 MG t} 81 MG Folic Acid Folic Acid No 1{table QD Folic Acid 1 MG 1 MG t} 1 MG DULoxetine DULoxetine No DULoxetine HCl 30 MG HCl 30 MG HCl 30 MG hydroCHLORO hydroCHLORO No hydroCHLOR thiazide thiazide Othiazide 12.5 MG 12.5 MG 12.5 MG Lisinopril Lisinopril No 1{table QD Lisinopril 2.5 MG 2.5 MG t} 2.5 MG Omeprazole Omeprazole No Omeprazole 40 MG 40 MG 40 MG Hydroxychlo Hydroxychlo No Hydroxychl roquine roquine oroquine Sulfate 200 Sulfate 200 Sulfate MG MG 200 MG Vitamin Vitamin No 1{table QD Vitamin B-12 1000 B-12 1000 t} B-12 1000 MCG MCG MCG Lisinopril Lisinopril No Lisinopril 2.5 MG 2.5 MG 2.5 MG Furosemide Furosemide No 1{table QD Furosemide 20 MG 20 MG t} 20 MG Aspirin 81 Aspirin 81 No 1{table QD Aspirin 81 81 MG 81 MG t} 81 MG Folic Acid Folic Acid No 1{table QD Folic Acid 1 MG 1 MG t} 1 MG DULoxetine DULoxetine No DULoxetine HCl 30 MG HCl 30 MG HCl 30 MG Aspirin 81 Aspirin 81 No 1{table QD Aspirin 81 81 MG 81 MG t} 81 MG Omeprazole Omeprazole No Omeprazole 40 MG 40 MG 40 MG Lisinopril Lisinopril No Lisinopril 2.5 MG 2.5 MG 2.5 MG Folic Acid Folic Acid No 1{table QD Folic Acid 1 MG 1 MG t} 1 MG Hydroxychlo Hydroxychlo No Hydroxychl roquine roquine oroquine Sulfate 200 Sulfate 200 Sulfate MG MG 200 MG hydroCHLORO hydroCHLORO No hydroCHLOR thiazide thiazide Othiazide 12.5 MG 12.5 MG 12.5 MG DULoxetine DULoxetine No DULoxetine HCl 30 MG HCl 30 MG HCl 30 MG Furosemide Furosemide No 1{table QD Furosemide 20 MG 20 MG t} 20 MG Vitamin Vitamin No 1{table QD Vitamin B-12 1000 B-12 1000 t} B-12 1000 MCG MCG MCG Aspirin 81 Aspirin 81 No 1{table QD Aspirin 81 81 MG 81 MG t} 81 MG Omeprazole Omeprazole No Omeprazole 40 MG 40 MG 40 MG hydroCHLORO hydroCHLORO No hydroCHLOR thiazide thiazide Othiazide 12.5 MG 12.5 MG 12.5 MG Vitamin Vitamin No 1{table QD Vitamin B-12 1000 B-12 1000 t} B-12 1000 MCG MCG MCG DULoxetine DULoxetine No 1{capsu QD DULoxetine HCl 30 MG HCl 30 MG le} HCl 30 MG Furosemide Furosemide No 1{table QD Furosemide 20 MG 20 MG t} 20 MG Lisinopril Lisinopril No Lisinopril 2.5 MG 2.5 MG 2.5 MG Folic Acid Folic Acid No 1{table QD Folic Acid 1 MG 1 MG t} 1 MG Hydroxychlo Hydroxychlo No Hydroxychl roquine roquine oroquine Sulfate 200 Sulfate 200 Sulfate MG MG 200 MG Hydroxychlo Hydroxychlo No Hydroxychl roquine roquine oroquine Sulfate 200 Sulfate 200 Sulfate MG MG 200 MG hydroCHLORO hydroCHLORO No hydroCHLOR thiazide thiazide Othiazide 12.5 MG 12.5 MG 12.5 MG DULoxetine DULoxetine No 1{capsu QD DULoxetine HCl 30 MG HCl 30 MG le} HCl 30 MG Lisinopril Lisinopril No Lisinopril 2.5 MG 2.5 MG 2.5 MG Folic Acid Folic Acid No 1{table QD Folic Acid 1 MG 1 MG t} 1 MG hydroCHLORO hydroCHLORO No 1{table QD hydroCHLOR thiazide thiazide t_in_th Othiazide 12.5 MG 12.5 MG e_morni 12.5 MG ng} Vitamin Vitamin No 1{table QD Vitamin B-12 1000 B-12 1000 t} B-12 1000 MCG MCG MCG Omeprazole Omeprazole No 1{capsu QD Omeprazole 40 MG 40 MG le} 40 MG Omeprazole Omeprazole No Omeprazole 40 MG 40 MG 40 MG Lisinopril Lisinopril No 1{table QD Lisinopril 2.5 MG 2.5 MG t} 2.5 MG Aspirin 81 Aspirin 81 No 1{table QD Aspirin 81 81 MG 81 MG t} 81 MG Furosemide Furosemide No 1{table QD Furosemide 20 MG 20 MG t} 20 MG Omeprazole Omeprazole No 1{capsu QD Omeprazole 40 MG 40 MG le} 40 MG Lisinopril Lisinopril No Lisinopril 2.5 MG 2.5 MG 2.5 MG hydroCHLORO hydroCHLORO No 1{table QD hydroCHLOR thiazide thiazide t_in_th Othiazide 12.5 MG 12.5 MG e_morni 12.5 MG ng} DULoxetine DULoxetine No 1{capsu QD DULoxetine HCl 30 MG HCl 30 MG le} HCl 30 MG Vitamin Vitamin No 1{table QD Vitamin B-12 1000 B-12 1000 t} B-12 1000 MCG MCG MCG Furosemide Furosemide No 1{table QD Furosemide 20 MG 20 MG t} 20 MG hydroCHLORO hydroCHLORO No hydroCHLOR thiazide thiazide Othiazide 12.5 MG 12.5 MG 12.5 MG Aspirin 81 Aspirin 81 No 1{table QD Aspirin 81 81 MG 81 MG t} 81 MG Omeprazole Omeprazole No Omeprazole 40 MG 40 MG 40 MG Hydroxychlo Hydroxychlo No Hydroxychl roquine roquine oroquine Sulfate 200 Sulfate 200 Sulfate MG MG 200 MG Folic Acid Folic Acid No 1{table QD Folic Acid 1 MG 1 MG t} 1 MG Lisinopril Lisinopril No 1{table QD Lisinopril 2.5 MG 2.5 MG t} 2.5 MG Omeprazole Omeprazole No 1{capsu QD Omeprazole 40 MG 40 MG le} 40 MG hydroCHLORO hydroCHLORO No hydroCHLOR thiazide thiazide Othiazide 12.5 MG 12.5 MG 12.5 MG Lisinopril Lisinopril No Lisinopril 2.5 MG 2.5 MG 2.5 MG Furosemide Furosemide No 1{table QD Furosemide 20 MG 20 MG t} 20 MG Folic Acid Folic Acid No 1{table QD Folic Acid 1 MG 1 MG t} 1 MG Omeprazole Omeprazole No Omeprazole 40 MG 40 MG 40 MG Aspirin 81 Aspirin 81 No 1{table QD Aspirin 81 81 MG 81 MG t} 81 MG Hydroxychlo Hydroxychlo No Hydroxychl roquine roquine oroquine Sulfate 200 Sulfate 200 Sulfate MG MG 200 MG DULoxetine DULoxetine No 1{capsu QD DULoxetine HCl 30 MG HCl 30 MG le} HCl 30 MG Vitamin Vitamin No 1{table QD Vitamin B-12 1000 B-12 1000 t} B-12 1000 MCG MCG MCG Omeprazole Omeprazole No 1{capsu QD Omeprazole 40 MG 40 MG le} 40 MG Lisinopril Lisinopril No Lisinopril 2.5 MG 2.5 MG 2.5 MG hydroCHLORO hydroCHLORO No 1{table QD hydroCHLOR thiazide thiazide t_in_th Othiazide 12.5 MG 12.5 MG e_morni 12.5 MG ng} DULoxetine DULoxetine No 1{capsu QD DULoxetine HCl 30 MG HCl 30 MG le} HCl 30 MG Vitamin Vitamin No 1{table QD Vitamin B-12 1000 B-12 1000 t} B-12 1000 MCG MCG MCG Furosemide Furosemide No 1{table QD Furosemide 20 MG 20 MG t} 20 MG hydroCHLORO hydroCHLORO No hydroCHLOR thiazide thiazide Othiazide 12.5 MG 12.5 MG 12.5 MG Aspirin 81 Aspirin 81 No 1{table QD Aspirin 81 81 MG 81 MG t} 81 MG Omeprazole Omeprazole No Omeprazole 40 MG 40 MG 40 MG Hydroxychlo Hydroxychlo No Hydroxychl roquine roquine oroquine Sulfate 200 Sulfate 200 Sulfate MG MG 200 MG Folic Acid Folic Acid No 1{table QD Folic Acid 1 MG 1 MG t} 1 MG Lisinopril Lisinopril No 1{table QD Lisinopril 2.5 MG 2.5 MG t} 2.5 MG hydroCHLORO hydroCHLORO No hydroCHLOR thiazide thiazide Othiazide 12.5 MG 12.5 MG 12.5 MG Folic Acid Folic Acid No 1{table QD Folic Acid 1 MG 1 MG t} 1 MG Vitamin Vitamin No 1{table QD Vitamin B-12 1000 B-12 1000 t} B-12 1000 MCG MCG MCG Aspirin 81 Aspirin 81 No 1{table QD Aspirin 81 81 MG 81 MG t} 81 MG Furosemide Furosemide No Furosemide 20 MG 20 MG 20 MG Lisinopril Lisinopril No 1{table QD Lisinopril 2.5 2.5 t} 2.5 Furosemide Furosemide No 1{table QD Furosemide 20 MG 20 MG t} 20 MG Omeprazole Omeprazole No 1{capsu QD Omeprazole 40 MG 40 MG le} 40 MG Omeprazole Omeprazole No Omeprazole 40 MG 40 MG 40 MG DULoxetine DULoxetine No DULoxetine HCl 30 MG HCl 30 MG HCl 30 MG DULoxetine DULoxetine No DULoxetine HCl 30 HCl 30 HCl 30 Lisinopril Lisinopril No 1{table QD Lisinopril 2.5 MG 2.5 MG t} 2.5 MG Lisinopril Lisinopril No Lisinopril 2.5 MG 2.5 MG 2.5 MG Hydroxychlo Hydroxychlo No Hydroxychl roquine roquine oroquine Sulfate 200 Sulfate 200 Sulfate MG MG 200 MG Omeprazole Omeprazole No 1{capsu QD Omeprazole 40 MG 40 MG le} 40 MG Immunizations Ordered Filled Immunization Date Status Comments [facility] e Immunization Name Name Mayelin Dick 2021-04-29 [facility] Mayelin Dick 2021-04-29 [facility] Mayelin Dick 2021-04-29 [facility] - [facility] Mayelin Dick 2021-04-29 [facility] - [facility] Mayelin Dick 2021-04-29 [facility] - [facility] Mayelin Dick 2021-04-29 [facility] - [facility] Mayelin Dick 2021-04-29 [facility]pleted [facility] - [facility] Mayelin Dick 2021-04-29 [facility] - [facility] Mayelin Dick 2021-04-29 [facility]pleted [facility] - [facility] Mayelin Dick 2021-04-29 [facility]pleted [facility] Influenza, 2021-04-29 Completed Yvonne Martinez Seasonal, 00:00:00 - External Injectable, Preservative Free Influenza, 2021-04-29 Completed Yvonne Martinez Seasonal, 00:00:00 - External Injectable, Preservative Free Influenza, 2021-04-29 Completed Yvonne Martinez Seasonal, 00:00:00 - External Injectable, Preservative Free Influenza, 2021-04-29 Completed Yvonne Martinez Seasonal, 00:00:00 - External Injectable, Preservative Free Afluria single dose Afluria single dose 2019-05-12 [facility]pleted [facility] Afluria single dose Afluria single dose 2019-05-12 Completed [facility] - [facility] Afluria single dose Afluria single dose 2019-05-12 Completed [facility] - [facility] Afluria single dose Afluria single dose 2019-05-12 Completed [facility] - [facility] Afluria single dose Afluria single dose 2019-05-12 Completed [facility]:07[facility] - [facility] Afluria single dose Afluria single dose 2019-05-12 Completed [facility]:07[facility] - [facility] Afluria single dose Afluria single dose 2019-05-12 Completed [facility] - [facility] Afluria single dose Afluria single dose 2019-05-12 Completed [facility] - [facility] Afluria single dose Afluria single dose 2019-05-12 Completed [facility]:07[facility] - [facility] Afluria single dose Afluria single dose 2019-05-12 Completed [facility] - [facility] Afluria single dose Afluria single dose 2019-05-12 [facility]pleted [facility] Influenza Virus 2019-05-12 Completed Yvonne olearyold Vaccine, No 00:00:00 - External Preserv, age 6 months and up Influenza Virus 2019-05-12 Completed Yvonne Orantes ybold Vaccine, No 00:00:00 - External Preserv, age 6 months and up Influenza Virus 2019-05-12 Completed Yvonne olearyold Vaccine, No 00:00:00 - External Preserv, age 6 months and up Influenza Virus 2019-05-12 Completed Yvonne Orantes ybold Vaccine, No 00:00:00 - External Preserv, age 6 months and up Afluria single dose Afluria single dose 2019-05-12 [facility] Influenza Virus Unknown Completed Yvonne olearyold Vaccine, No - External Preserv, age 6 months and up Influenza, Unknown Completed Yvonne Cadenaold Seasonal, - External Injectable, Preservative Free Influenza Virus Unknown Completed Yvonne olearyold Vaccine, No - External Preserv, age 6 months and up Influenza, Unknown Completed Yvonne Cadenaold Seasonal, - External Injectable, Preservative Free COVID-19 Unknown Completed Yvonne Orantesybold Vaccine(Pfizer)(fal - Ext ernal l 2022)(12yrs+) Influenza, Unknown Completed Yvonne Cadenaold Injectable, Mdck, - Exter nal Quadrivalent With Preservative Pneumococcal Unknown Completed Yvonne Seybo ld Conjugate 15 - External (Vaxneuvance) Influenza Virus Unknown Completed Yvonne olearyold Vaccine, No - External Preserv, age 6 months and up Influenza, Unknown Completed Yvonne Martinez Seasonal, - External Injectable, Preservative Free COVID-19 Unknown Completed Yvonne Orantesybold Vaccine(Pfizer)(fal - Ext ernal l 2022)(12yrs+) Influenza, Unknown Completed Yvonne Cadenaold Injectable, Mdck, - Exter nal Quadrivalent With Preservative Pneumococcal Unknown Completed Yvonne Seybo ld Conjugate 15 - External (Vaxneuvance) Influenza Virus Unknown Completed Yvonne olearyold Vaccine, No - External Preserv, age 6 months and up Influenza, Unknown Completed Yvonne Cadenaold Seasonal, - External Injectable, Preservative Free COVID-19 Unknown Completed Yvonne Orantesybold Vaccine(Pfizer)(fal - Ext ernal l 2022)(12yrs+) Influenza, Unknown Completed Yvonne Martinez Injectable, Mdck, - Exter nal Quadrivalent With Preservative Pneumococcal Unknown Completed Yvonne Orantesybo ld Conjugate 15 - External (Vaxneuvance) Afluria single dose Afluria single dose Unknown Completed [facility] Afluria Afluria Unknown Completed [facility] Vital Signs Vital Name Observation Time Observation Value Comments Source Systolic blood 2023-05-10 18:47:00 118 mm[Hg] Yvonne Martinez - pressure External Diastolic blood 2023-05-10 18:47:00 76 mm[Hg] Marleni Martinez - pressure External Heart rate 2023-05-10 18:47:00 82 /min Yvonne estrella - External Body temperature 2023-05-10 18:47:00 36.61 Manjula Soumya ey Seybold - External Respiratory rate 2023-05-10 18:47:00 16 /min Soumya ey Seybold - External Body height 2023-05-10 18:47:00 152.4 cm Yvonne S eybold - External Body weight 2023-05-10 18:47:00 71.487 kg Yvonne S eybold - External BMI 2023-05-10 18:47:00 30.78 kg/m2 Yvonne S eybold - External Systolic blood 2023-03-30 12:58:00 112 mm[Hg] Yvonne Seybold - pressure External Diastolic blood 2023-03-30 12:58:00 72 mm[Hg] Terellse y Seybold - pressure External Heart rate 2023-03-30 12:58:00 88 /min Yvonne S eybold - External Respiratory rate 2023-03-30 12:58:00 16 /min Soumya ey Seybold - External Body height 2023-03-30 12:58:00 152.4 cm Yvonne S eybold - External Body weight 2023-03-30 12:58:00 70.308 kg Yvonne S eybold - External BMI 2023-03-30 12:58:00 30.27 kg/m2 Yvonne S eybold - External Systolic blood 2022-12-15 15:41:00 112 mm[Hg] Yvonne Seybold - pressure External Diastolic blood 2022-12-15 15:41:00 64 mm[Hg] Terellse y Seybold - pressure External Heart rate 2022-12-15 15:41:00 80 /min Yvonne S eybold - External Respiratory rate 2022-12-15 15:41:00 16 /min Soumya ey Seybold - External Body height 2022-12-15 15:41:00 152.4 cm Yvonne S eybold - External Body weight 2022-12-15 15:41:00 71.668 kg Yvonne S eybold - External BMI 2022-12-15 15:41:00 30.86 kg/m2 Yvonne S eybold - External Body weight 2022-10-20 19:07:00 72.576 kg Yvonne S eybold - External BMI 2022-10-20 19:07:00 31.25 kg/m2 Yvonne Preston eybold - External Systolic blood 2022-09-01 22:11:00 116 mm[Hg] Yvonne Seybold - pressure External Diastolic blood 2022-09-01 22:11:00 76 mm[Hg] Kelse y Seybold - pressure External Heart rate 2022-09-01 22:11:00 80 /min Yvonne Preston eybold - External Body temperature 2022-09-01 22:11:00 36.61 Manjula Soumya ey Seybold - External Respiratory rate 2022-09-01 22:11:00 16 /min Soumya ey Seybold - External Body height 2022-09-01 22:11:00 152.4 cm Yvonne Preston eybold - External Body weight 2022-09-01 22:11:00 71.215 kg Yvonne Preston eybold - External BMI 2022-09-01 22:11:00 30.66 kg/m2 Yvonne Preston eybold - External Systolic blood 2022-07-21 15:08:00 132 mm[Hg] Yvonne Seybold - pressure External Diastolic blood 2022-07-21 15:08:00 80 mm[Hg] Kelse y Seybold - pressure External Heart rate 2022-07-21 15:08:00 76 /min Yvonne Preston eybold - External Body temperature 2022-07-21 15:08:00 36.67 Manjula Soumya ey Seybold - External Respiratory rate 2022-07-21 15:08:00 18 /min Soumya alexandra Seybold - External Body height 2022-07-21 15:08:00 152.4 cm Yvonne Preston eybold - External Body weight 2022-07-21 15:08:00 72.213 kg Yvonne Preston eybold - External BMI 2022-07-21 15:08:00 31.09 kg/m2 Yvonne Preston eybold - External height 2021-09-05 09:00:00 65.00 [in_i] [facility] weight 2021-09-05 09:00:00 152.4 [lb_av] [facility] temperature 2021-09-05 09:00:00 97.3 [degF] [facility] bmi 2021-09-05 09:00:00 25.36 kg/m2 [facility] oximetry 2021-09-05 09:00:00 100 % Common [facility] respiratory rate 2021-09-05 09:00:00 18 /min [facility] blood pressure 2021-09-05 09:00:00 125 mm[Hg] Common [facility] - systolic [facility] blood pressure 2021-09-05 09:00:00 56 mm[Hg] [facility] - diastolic [facility] height 2021-08-28 08:00:00 65.00 [in_i] [facility] weight 2021-08-28 08:00:00 160 [lb_av] Common [facility] temperature 2021-08-28 08:00:00 97 [degF] [facility] bmi 2021-08-28 08:00:00 26.62 kg/m2 [facility] oximetry 2021-08-28 08:00:00 96 % Common [facility] respiratory rate 2021-08-28 08:00:00 22 /min [facility] blood pressure 2021-08-28 08:00:00 118 mm[Hg] [facility] - systolic [facility] blood pressure 2021-08-28 08:00:00 65 mm[Hg] [facility] - diastolic [facility] height 2021-08-28 10:00:00 65.00 [in_i] [facility] weight 2021-08-28 10:00:00 160 [lb_av] [facility] temperature 2021-08-28 10:00:00 97 [degF] [facility] bmi 2021-08-28 10:00:00 26.62 kg/m2 [facility] oximetry 2021-08-28 10:00:00 96 % Common [facility] respiratory rate 2021-08-28 10:00:00 22 /min [facility] blood pressure 2021-08-28 10:00:00 118 mm[Hg] Common [facility] - systolic [facility] blood pressure 2021-08-28 10:00:00 65 mm[Hg] Common [facility] - diastolic [facility] Systolic blood 2021-08-26 21:45:00 98 mm[Hg] [facility] Diastolic blood 2021-08-26 21:45:00 64 mm[Hg] [facility] Heart rate 2021-08-26 21:45:00 108 /min [facility] Body temperature 2021-08-26 21:45:00 37.56 [facility]jula [facility] 2021-08-26 21:45:00 20 /min [facility] Oxygen saturation in 2021-08-26 21:45:00 97 /min [facility] Arterial blood by [facility] Pulse oximetry Branch Body weight 2021-08-26 20:37:00 72.576 kg [facility] height 2021-04-29 16:20:00 65.00 [in_i] [facility] weight 2021-04-29 16:20:00 155 [lb_av] [facility] temperature 2021-04-29 16:20:00 97.3 [degF] [facility] bmi 2021-04-29 16:20:00 25.79 kg/m2 [facility] oximetry 2021-04-29 16:20:00 99 % [facility] respiratory rate 2021-04-29 16:20:00 18 /min [facility] blood pressure 2021-04-29 16:20:00 108 mm[Hg] Common [facility] - systolic [facility] blood pressure 2021-04-29 16:20:00 61 mm[Hg] Common [facility] Procedures Procedure Date / Time Performed Performing Clinician Sourc e RAPID INFLUENZA A/B 2021-08-26 20:47:00 Jess Aquino [facility] Medical Branch COVID-19 (ID NOW 2021-08-26 20:47:00 Jess Aquino [facility] RAPID TESTING) Medical Branch NOTICE OF PRIVACY 2021-08-26 20:36:02 Doctor Unassigned, No [facility] PRACTICES Name Medical Branch CONSENT/REFUSAL FOR 2021-08-26 20:32:42 [facility] Name [facility] TREATMENT Encounters Start End Encounter Admission Attending Care Care Encounter Source Date/Time Date/Time Type Type Clinicians Facility Department ID 2022-03-18 Outpatient Mulligan, Na [facility]LMLC [facility] [id number] 2 Common 09:38:00 [facility] 2021-11-14 Outpatient Mulligan, Na STLMLC STLMLC [id number] 2 [facility] 09:51:01 [facility] 2021-09-04 Outpatient Mulligan, Na STLMLC STLMLC [id number] 2 [facility] 10:07:05 [facility] 2021-08-26 Outpatient Mulligan, Na STLMLC STLMLC [id number] 2 [facility] 14:35:00 [facility] 2021-08-06 Outpatient Mulligan, Na STLMLC STLMLC [id number] 2 Common 14:15:31 [id number] [facility] 2021-08-06 Outpatient Mulligan, Na STLMLC STLMLC [id number] 2 Common 13:48:34 [id number] [facility] 2021-08-06 Outpatient Mulligan, Na STLMLC STLMLC [id number] 2 Common 13:14:29 [id number] [facility] 2021-08-06 Outpatient Mulligan, Na STLMLC STLMLC [id number] 2 Common 13:13:24 [id number] [facility] 2021-08-06 Outpatient Mulligan, Na STLMLC STLMLC [id number] 2 Common 12:18:26 [id number] [facility] 2021-08-06 [facility] [id number] 2 Common 11:35:56 [id number] [facility] 2021-08-06 Out[facility] [id number] 2 Common 11:21:40 [id number] [facility] 2021-08-06 Outpatient [facility] Mull[facility] [id number] 2 Common 11:04:27 [id number] [facility] 2024-01-17 2024-01-17 Outpatient YVONNE ANTUNEZ [id number] Yvonne 15:00:00 15:00:00 MATTHIAS Seybol d 2024-01-17 2024-01-17 Outpatient VF45 YVONNE MACEDO [id number] Yvonne 14:00:00 14:00:00 Seybol d 2023-09-28 2023-09-28 Outpatient YVONNE BOYER [id number] Yvonne 13:00:00 13:00:00 LON Seybo ld 2023-09-09 2023-09-09 Outpatient YVONNE FERGUSON [id number] Yvonne 09:00:00 09:00:00 NAILA Seybol d 2023-07-15 2023-07-15 Outpatient YVONNE HESTER [id number] Yvonne 08:45:00 08:45:00 JUAN M Seybol d 2023-06-11 2023-06-11 Outpatient YVONNE TSANG [id number] Yvonne 09:00:00 09:00:00 MONETRA Seybol d 2023-06-11 2023-06-11 Outpatient ONWUCHBUNNY MACEDO [id number] Yvonne 09:00:00 09:00:00 , SARITHA gupta 2023-06-10 2023-06-10 Outpatient BELOL MACEDO [id number] Yvonne 00:00:00 00:00:00 MD ELVIA Seybol d 2023-06-07 2023-06-07 Outpatient YVONNE FERGUSON [id number] Yvonne 00:00:00 00:00:00 NAILA Seybol d 2023-06-01 2023-06-01 Outpatient LEXTITONghia MACEDO [id number] [place]ne 00:00:00 00:00:00 MD ELVIA Seybol d 2023-05-26 2023-05-26 Outpatient SUKUMAR MACEDO [id number] [place]ne 00:00:00 00:00:00 Seybol d 2023-05-26 2023-05-26 Outpatient YVONNE FERGUSON [id number] Yvonne 00:00:00 00:00:00 NAILA Seybol d 2023-05-19 2023-05-19 Outpatient YVONNE HESTER [id number] Yvonne 15:00:00 15:00:00 JUAN M Seybol d 2023-05-18 2023-05-18 Outpatient YVONNE FERGUSON [id number] [place]ne 00:00:00 00:00:00 NAILA Seybol d 2023-05-17 2023-05-17 Outpatient BELLO MACEDO [id number] Y[place]ne 00:00:00 00:00:00 MD ELVIA Seybol d 2023-05-11 2023-05-11 Outpatient GC_GCBZW_Ka PRIV PRIV [id number] [facility] 00:00:00 00:00:00 diyala_S [id number] Medic al 2023-05-10 2023-05-10 Outpatient LAB47 YVONNE MACEDO [id number] [place]vonne 15:05:00 15:05:00 Seybol d 2023-05-10 2023-05-10 Outpatient YVONNE FERGUSON [id number] [place]ne 14:00:00 14:00:00 NAILA Seybol d 2023-04-26 2023-04-26 Outpatient YVONNE VAZQUEZ [id number] Yvonne 00:00:00 00:00:00 ROCAEL Seybol d 2023-04-26 2023-04-26 Outpatient YVONNE FERGUSON [id number] Yvonne 00:00:00 00:00:00 NAILA Seybol d 2023-04-26 2023-04-26 Outpatient YVONNE VAZQUEZ [id number] Yvonne 00:00:00 00:00:00 ROCAEL Seybol d 2023-04-23 2023-04-23 Outpatient AKLENAYVONNE [id number] Yvonne 16:30:00 16:30:00 AYSENUR Seybol d 2023-04-23 2023-04-23 Outpatient YVONNE VAZQUEZ [id number] [place]ne 08:35:00 08:35:00 ROCAEL Seybol d 2023-04-22 2023-04-22 Outpatient YVONNE HESTER [id number] [place]vonne 08:30:00 08:30:00 JUAN M Seybol d 2023-04-20 2023-04-20 Outpatient YVONNE MEDINA [id number] Yvonne 14:00:00 14:00:00 NHAN Seybol d 2023-04-19 2023-04-19 Outpatient YVONNE FERGUSON [id number] Yvonne 00:00:00 00:00:00 NAILA Seybol d 2023-03-30 2023-03-30 Outpatient [facility] YVONNE MACEDO [id number] Yvonne 08:30:00 08:30:00 Seybol d 2023-03-30 2023-03-30 Outpatient YVONNE BOYER [id number] Yvonne 08:00:00 08:00:00 LON Seybo ld 2023-03-24 2023-03-24 Outpatient YVONNE FERGUSON [id number] Yvonne 00:00:00 00:00:00 NAILA Seybol d 2023-03-23 2023-03-23 Outpatient YVONNE BOYER [id number] Yvonne 14:45:00 14:45:00 LON Seybo ld 2023-03-22 2023-03-22 Outpatient YVONNE FERGUSON [id number] Yvonne 00:00:00 00:00:00 NAILA Seybol d 2023-03-06 2023-03-06 Outpatient YVONNE FERGUSON [id number] Yvonne 00:00:00 00:00:00 NAILA Seybol d 2023-02-21 2023-02-21 Outpatient MARTY YVONNE MACEDO [id number] Yvonne 00:00:00 00:00:00 NAILA Seybol d 2023-01-18 2023-01-18 Outpatient YVONNE ANTUNEZ [id number] Yvonne 14:40:00 14:40:00 MATTHIAS Seybol d 2023-01-18 2023-01-18 Outpatient TULIOYVONNE [id number] [place]vonne 14:00:00 14:00:00 MATTHIAS Seybol d 2023-01-18 2023-01-18 Outpatient VF45 YVONNE MACEDO [id number] Yvonne 14:00:00 14:00:00 Seybol d 2023-01-18 2023-01-18 Outpatient TOMOGRAPHYYVONNE [id number] Yvonne 13:15:00 13:15:00 MDC Seybol d 2023-01-09 2023-01-09 Outpatient YVONNE FERGUSON [id number] Yvonne 00:00:00 00:00:00 NAILA Seybol d 2022-12-29 2022-12-29 Outpatient YVONNE FERGUSON [id number] Yvonne 00:00:00 00:00:00 NAILA Seybol d 2022-12-29 2022-12-29 Outpatient YVONNE FERGUSON [id number] Yvonne 00:00:00 00:00:00 NAILA Seybol d 2022-12-23 2022-12-23 Outpatient YVONNE RODRÍGUEZ [id number] Yvonne 00:00:00 00:00:00 SARAH Orantesybo ld 2022-12-20 2022-12-20 Outpatient YVONNE BOYER [id number] Yvonne 00:00:00 00:00:00 LON Orantesybo ld 2022-12-15 2022-12-15 Outpatient LABGuerda MACEDO [id number] Yvonne 11:30:00 11:30:00 Seybol d 2022-12-15 2022-12-15 Outpatient YVONNE BOYER [id number] Yvonne 11:00:00 11:00:00 LON Orantesybo ld 2022-12-10 2022-12-10 Outpatient YVONNE BOYER [id number] Yvonne 00:00:00 00:00:00 LON Seybo ld 2022-12-01 2022-12-01 Outpatient YVONNE BOYER [id number] Yvonne 08:15:00 08:15:00 LON Seybo ld 2022-11-23 2022-11-23 Outpatient YVONNE FERGUSON [id number] Yvonne 00:00:00 00:00:00 NAILA Seybol d 2022-10-28 2022-10-28 Outpatient LAB47 YVONNE MACEDO [id number] [place]vonne 15:05:00 15:05:00 Seybol d 2022-10-20 2022-10-20 Outpatient YVONNE LUNA [id number] Yvonne 14:30:00 14:30:00 FAB Seybo ld 2022-10-20 2022-10-20 Outpatient YVONNE LUNA [id number] Yvonne 00:00:00 00:00:00 FAB Seybo ld 2022-10-19 2022-10-19 Outpatient CARSONCATRACHITAYVONNE [id number] Yvonne 08:15:00 08:15:00 NAILA Seybol d 2022-10-07 2022-10-07 Outpatient YVONNE FERGUSON [id number] Yvonne 00:00:00 00:00:00 NAILA Seybol d 2022-10-07 2022-10-07 [facility] [id number] mmon 00:00:00 00:00:00 [facility] 2022-09-02 2022-09-02 Outpatient YVONNE BOYER [id number] Yvonne 00:00:00 00:00:00 LON Seybo ld 2022-09-01 2022-09-01 Outpatient LAB47 YVONNE MACEDO [id number] Yvonne 17:00:00 17:00:00 Seybol d 2022-09-01 2022-09-01 Outpatient YVONNE BOYER [id number] Yvonne 16:15:00 16:15:00 LON Seybo ld 2022-09-01 2022-09-01 Outpatient YVONNE BOYER YVONNE [id number] Yvonne 00:00:00 00:00:00 LON Orantesybo ld 2022-09-01 2022-09-01 Outpatient YVONNE BOYER YVONNE [id number] Yvonne 00:00:00 00:00:00 LON Orantesybo ld 2022-08-11 2022-08-11 Outpatient YVONNE FERGUSON YVONNE [id number] Yvonne 16:15:00 16:15:00 NAILA Seybol d 2022-07-21 2022-07-21 Outpatient YVONNE FERGUSON YVONNE [id number] Yvonne 09:00:00 09:00:00 NAILA Seybol d 2022-04-06 2022-04-06 (TEL) STLMLC STLMLC [id number] Co mmon 00:00:00 00:00:00 [facility] 2022-03-20 2022-03-20 OFFICE STLMLC STLMLC [id number] Co mmon 00:00:00 00:00:00 VISIT EST Spir it PT LEVEL 3 [facility] 2022-03-12 2022-03-12 (TEL) STLMLC STLMLC [id number] Co mmon 00:00:00 00:00:00 [facility] 2021-09-05 2021-09-05 OFFICE STLMLC STLMLC [id number] Co mmon 00:00:00 00:00:00 VISIT EST Spir it PT LEVEL 3 [facility] 2021-09-01 2021-09-01 (TEL) STLMLC STLMLC [id number] Co mmon 00:00:00 00:00:00 [facility] 2021-08-28 2021-08-28 OFFICE STLMLC STLMLC [id number] Co mmon 00:00:00 00:00:00 VISIT EST Spir it PT LEVEL 3 [facility] 2021-08-28 2021-08-28 NON-BILLAB STLMLC STLMLC [id number] Common 00:00:00 00:00:00 LE VISIT [facility] 2021-08-26 2021-08-26 Emergency X [facility] ERT [id number] Univers 14:37:00 16:05:00 JESS [facility] 2021-08-26 2021-08-26 [facility] [id number] Univers 14:37:00 16:05:00 Jess Preston OSLO [id number] i ty of [facility] [id number] [facility] [id number] [place] [id number] [place] 2021-07-02 2021-07-02 (TEL) STLMLC STLMLC [id number] Co mmon 00:00:00 00:00:00 [facility] 2021-04-29 2021-04-29 OFFICE STLMLC STLMLC [id number] Co mmon 00:00:00 00:00:00 VISIT [facility] 4 [facility] 2021-04-15 2021-04-15 (TEL) STLMLC STLMLC [id number] Co mmon 00:00:00 00:00:00 [facility] 2020-12-23 2020-12-23 Outpatient STLMLC STLMLC [id number] Common 00:00:00 00:00:00 [facility] 2020-11-20 2020-11-20 Outpatient STLMLC STLMLC [id number] Common 00:00:00 00:00:00 [facility] 2020-11-19 2020-11-19 Outpatient STLMLC STLMLC [id number] Common 00:00:00 00:00:00 [facility] 2020-07-30 2020-07-30 Outpatient STLMLC STLMLC [id number] Common 00:00:00 00:00:00 [facility] 2020-07-18 2020-07-18 Outpatient STLMLC STLMLC [id number] Common 00:00:00 00:00:00 [facility] 2020-02-23 2020-02-23 [facility] [id number] Common 13:04:00 13:04:[address] [facility] 2020-02-20 2020-02-20 [facility] [id number] Common 16:00:00 16:00:[address] [facility] 2019-11-22 2019-11-22 [facility] [id number] Common 12:00:00 12:00:[address] [facility] 2019-11-15 2019-11-15 Out[facility] [id number] Common 14:25:00 14:25:[address] [facility] 2019-08-07 2019-08-07 [facility] [id number] Common 13:41:00 13:41:[address] [facility] 2019-06-02 2019-06-02 Out[facility] [id number] Common 16:54:00 16:54:[address] [facility] 2019-05-30 2019-05-30 [facility] [id number] Common 09:23:00 09:23:[address] [facility] 2019-05-12 2019-05-12 [facility] [id number] Common 16:00:00 16:00:[address] [facility] 2018-10-31 2018-10-31 Out[facility] [id number] Common 16:49:00 16:49:[address] [facility] 2018-10-04 2018-10-04 Out[facility] [id number] Common 15:30:00 15:30:[address] [facility] 2018-07-07 2018-07-07 Out[facility] [id number] Common 16:00:00 16:00:[address] [facility] 2018-04-07 2018-04-07 Outpatient Nichole Varelat [id number] Common 15:45:00 15:45:[address] [facility] 2018-01-06 2018-01-06 Outpatient Nichole Varelat 14 [id number] Common 16:30:00 16:30:[address] [facility] 2017-12-17 2017-12-17 Outpatient Nichole Varelat [id number] Common 09:30:00 09:30:[address] [facility] Results This patient has no known results. Notes Date/Time Note Provider Source 2023-03-30 08:15:42 [id number]:15:42Formatting of [facility] this note is different from the original.Chief Complaint Patient presents with Follow-up 3 month Eryn Brownectronically signed by Sandra Lewis LVN at 03/30/2023 8:16 AM [id number]:16:07Nurse [id number] for patient [id number] NoteLNUpland Hills Health2727 [facility] [id number]"
[2023-06-13] MEDS ORDERED: ALBUTEROL 2.5 MG/3 ML NEB SOL ONE (16:23)
[2023-06-13] MEDS ORDERED: IPRATROPIUM BROM 0.5MG/2.5ML ONE (16:23)
[2023-06-13 16:27] LABS: Absolute Lymphocytes (CBC) 1.9 K/uL (0.7-4.9); Hematocrit 37.7 % (36.0-45.0); Lymphocytes % 19.1 % (15.3-44.8); MCV 91.4 fL (80-100); MPV 7.7 fL (7.6-11.3); Platelets 368 thou/uL (152-406); RBC Red Blood Cell Count 4.13 M/uL (3.86-4.86)
[2023-06-13 16:45] LABS: Potassium 3.6 mEq/L (3.5-5.1); Troponin High Sensitivity 4.4 pg/mL (<58.9)
--- NOTE | 2023-06-13 16:56 | RAD REPORT ---
EXAM DESCRIPTION: Amarilis Single View06/13/2023 4:36 pm CLINICAL HISTORY: Chest pain COMPARISON: 2021 FINDINGS: Chronic elevation left hemidiaphragm. The lungs appear clear of acute infiltrate. The heart is normal size IMPRESSION: No acute abnormalities displayed
--- NOTE | 2023-06-13 17:06 | EDPHYS ---
Physician Documentation [facility] Name: Mira Lim Age: 57 yrs Sex: Female : 1965 Arrival Date: 06/13/2023 Time: 15:31 Bed 19 Private MD: ED Physician Shady Montenegro HPI: 06/13 15:48 This 57 yrs old Female presents to ER via Ambulatory with complaints of Cough. jh7 15:48 The patient or guardian reports cough, flu symptoms, arthralgias, low-grade fever. jh7 Onset: The symptoms/episode began/occurred 2 week(s) ago. Associated signs and symptoms: Pertinent positives: chest tightness. 57-year-old female presents to the ER complaining of cough, runny nose, intermittent subjective fever, and chest tightness for the past 2 weeks. She has a history of lupus.. Historical: - Allergies: 15:50 erythromycin base; hb 15:50 Sulfa (Sulfonamide Antibiotics); hb - Home Meds: 15:50 Hydrochlorothiazide Oral [Active]; hydroxychloroquine Oral [Active]; hb - PMHx: 15:50 Hypertension; Lupus erythematosus; hb - Immunization history:: Adult Immunizations up to date. - Social history:: Smoking status: Patient denies any tobacco usage or history of. ROS: 15:48 Eyes: Negative for injury, pain, redness, and discharge, Neck: Negative for injury, jh7 pain, and swelling, Cardiovascular: Negative for chest pain, palpitations, and edema, Abdomen/GI: Negative for abdominal pain, nausea, vomiting, diarrhea, and constipation, Back: Negative for injury and pain, MS/Extremity: Negative for injury and deformity, Skin: Negative for injury, rash, and discoloration, Neuro: Negative for headache, weakness, numbness, tingling, and seizure, 15:48 Constitutional: Positive for body aches, fever, 15:48 ENT: Positive for rhinorrhea, sinus congestion, 15:48 Respiratory: Positive for cough, Negative for shortness of breath, wheezing, 15:48 All other systems are negative, Exam: 15:48 Constitutional: This is a well developed, well nourished patient who is awake, alert, jh7 and in no acute distress. Head/Face: Normocephalic, atraumatic. Neck: Trachea midline, no thyromegaly or masses palpated, and no cervical lymphadenopathy. Supple, full range of motion without nuchal rigidity, or vertebral point tenderness. No Meningismus. Cardiovascular: Regular rate and rhythm with a normal S1 and S2. No gallops, murmurs, or rubs. Normal PMI, no JVD. No pulse deficits. Abdomen/GI: Soft, non-tender, with normal bowel sounds. No distension or tympany. No guarding or rebound. No evidence of tenderness throughout. Skin: Warm, dry with normal turgor. Normal color with no rashes, no lesions, and no evidence of cellulitis. MS/ Extremity: Pulses equal, no cyanosis. Neurovascular intact. Full, normal range of motion. Neuro: Awake and alert, GCS 15, oriented to person, place, time, and situation. Motor strength 5/5 in all extremities. Sensory grossly intact. Normal gait. 15:48 Respiratory: the patient does not display signs of respiratory distress, Respirations: normal, Breath sounds: decreased breath sounds, that are mild, are located in both bases, Vital Signs: 15:48 BP 136 / 97; Pulse 95; Resp 20; Temp 99.1; Pulse Ox 100% on R/A; Weight 68.04 kg; hb Height 5 ft. 0 in. ; Pain 5/10; 16:13 BP 137 / 90; Pulse 94; Resp 16; Pulse Ox 99% on R/A; me1 17:15 BP 126 / 78; Pulse 98; Resp 16; Pulse Ox 99% on R/A; me1 17:15 BP 118 / 72; Pulse 92; Resp 17; Pulse Ox 100% on R/A; me1 15:48 Body Mass Index 29.29 (68.04 kg, 152.4 cm) hb 15:48 Pain Scale: Adult hb MDM: 15:50 Patient medically screened. [facility] 17:02 Differential Diagnosis: Bronchitis Influenza Upper Respiratory Infection Allergic jh7 Rhinitis Pneumonia. Data reviewed: vital signs, nurses notes, lab test result(s), radiologic studies, plain films. I considered the following discharge prescriptions or medication management in the emergency department Medications were administered in the Emergency Department. See MAR. Independent interpretation of the following test(s) in the Emergency Department X-Ray: My interpretation is no pneumonia. Care significantly affected by the following chronic conditions: Hypertension. Counseling: I had a detailed discussion with the patient and/or guardian regarding the historical points, exam findings, and any diagnostic results supporting the discharge/admit diagnosis, to return to the emergency department if symptoms worsen or persist or if there are any questions or concerns that arise at home. Response to treatment: the patient's symptoms have markedly improved after treatment. Special discussion: We will give contingency doxycycline due to patient being immunocompromised.. 06/13 15:55 Order name: Basic Metabolic Panel; Complete Time: 16:46 [facility] 06/13 15:55 Order name: CBC with Diff; Complete Time: 16:46 [facility] 06/13 15:55 Order name: Troponin HS; Complete Time: 16:46 [facility] 06/13 15:55 Order name: XRAY Chest (1 view); Complete Time: 16:59 [facility] 06/13 15:55 Order name: EKG; Complete Time: 15:56 [facility] 06/13 15:55 Order name: Cardiac monitoring; Complete Time: 17:44 [facility] 06/13 15:55 Order name: EKG - Nurse/Tech; Complete Time: 17:44 [facility] 06/13 15:55 Order name: IV Saline Lock; Complete Time: 16:17 [facility] 06/13 15:55 Order name: Labs collected and sent; Complete Time: 16:17 [facility] 06/13 15:55 Order name: O2 Per Protocol; Complete Time: 16:17 [facility] 06/13 15:55 Order name: O2 Sat Monitoring; Complete Time: 16:17 [facility] EC:37 Rate is 96 beats/min. Rhythm is regular. QRS [place] is Normal. NM interval is normal at [facility] 138 msec. QRS interval is normal at 82 msec. QT interval is normal at 378 msec. No Q waves. T waves are Normal. Clinical impression: NSR w/ Non-specific ST/T Changes. Administered Medications: 16:19 Drug: DuoNeb Nebulize (2.5 mg - 0.5 mg) 3 ml Nebulizer once Route: Nebulizer; me1 16:42 Follow up: Response: No adverse reaction; Wheezing diminished me1 Disposition Summary: 06/13/23 17:05 Discharge Ordered Notes: Location: Home [facility] Problem: new [facility] Symptoms: have improved [facility] Condition: Stable [facility] Diagnosis - Acute bronchitis, unspecified [facility] Followup: [facility] - With: Private Physician - When: 2 - 3 days - Reason: Recheck today's complaints Discharge Instructions: - Discharge Summary Sheet [facility] - Acute Bronchitis, Adult [facility] Forms: - Medication Reconciliation Form [facility] - Thank You Letter [facility] - Antibiotic Education [facility] - Patient Portal Instructions [facility] - Leadership Thank You Letter [facility] Prescriptions: - albuterol sulfate 90 mcg/actuation Inhalation HFA Aerosol Inhaler - inhale 1 inhalation INHALATION route every 4 to 6 hours As needed; 1 Each; [facility] Refills: 0, Product Selection Permitted - Tessalon Perles 100 mg Oral Capsule - take 1 capsule ORAL route every 8 hours As needed; 15 capsule; Refills: 0, [facility] Product Selection Permitted - Doxycycline Hyclate 100 mg Oral tablet - take 1 tablet ORAL route every 12 hours for 7 days; 14 tablet; Refills: 0, [facility] Product Selection Permitted Signatures: Dispatcher [employer] Joan Wells RN RN Shira Kebede, DOG OBEDIENCE INSTRUCTOR [place] [id number] Lottie Snow RN RN pa1
--- NOTE | 2023-06-13 17:06 | ER ---
Nurse's Notes [facility] Nichole Name: Mira Lim Age: 57 yrs Sex: Female : 1965 Arrival Date: 06/13/2023 Time: 15:31 Bed 19 Private MD: Diagnosis: Acute bronchitis, unspecified Presentation: 06/13 15:48 Chief complaint: cough, congestion, and mild SOB x 2 weeks, left flank pain that is hb worse when lying on left side x 2 days. Denies urinary symptoms. On Augmentin day 3. Coronavirus screen: Client presents with at least one sign or symptom that may indicate coronavirus-19. Standard/surgical mask placed on the client. Provider contacted for isolation considerations. Ebola Screen: No symptoms or risks identified at this time. Initial Sepsis Screen: Does the patient meet any 2 criteria? No. Patient's initial sepsis screen is negative. Does the patient have a suspected source of infection? No. Patient's initial sepsis screen is negative. Risk Assessment: Do you want to hurt yourself or someone else? Patient reports no desire to harm self or others. Onset of symptoms was May 30, 2023. 15:48 Method Of Arrival: Ambulatory hb 15:52 Acuity: MARIS 3 hb Historical: - Allergies: 15:50 erythromycin base; hb 15:50 Sulfa (Sulfonamide Antibiotics); hb - Home Meds: 15:50 Hydrochlorothiazide Oral [Active]; hydroxychloroquine Oral [Active]; hb - PMHx: 15:50 Hypertension; Lupus erythematosus; hb - Immunization history:: Adult Immunizations up to date. - Social history:: Smoking status: Patient denies any tobacco usage or history of. Screenin:45 [facility] ED Fall Risk Assessment (Adult) History of falling in the last 3 months, me1 including since admission No falls in past 3 months (0 pts) Confusion or Disorientation No (0 pts) Intoxicated or Sedated No (0 pts) Impaired Gait No (0 pts) Mobility Assist Device Used No (0 pt) Altered Elimination No (0 pt) Score/Fall Risk Level 0 - 2 = Low Risk Maintained a safe environment, Provided non-skid footwear, Hourly rounding (assess needs \T\ fall precautionary measures) done. Abuse screen: Denies threats or abuse. Nutritional screening: No deficits noted. Tuberculosis screening: No symptoms or risk factors identified. Assessment: 17:45 General: Appears comfortable, well groomed, well developed, well nourished, Behavior is me1 calm, cooperative, appropriate for age, Reports cough, congestion, and mild SOB x 2 weeks, left flank pain that is worse when lying on left side x 2 days. Denies urinary symptoms. On Augmentin day 3. Pain: Complains of pain in left flank Pain does not radiate. Pain currently is 3 out of 10 on a pain scale. Quality of pain is described as sharp, Pain began gradually, Is continuous. Neuro: Level of Consciousness is awake, alert, obeys commands, Oriented to person, place, time, situation, Appropriate for age. Cardiovascular: Capillary refill < 3 seconds Patient's skin is warm and dry. Respiratory: Reports shortness of breath cough that is cough, congestion, and mild SOB x 2 weeks, left flank pain that is worse when lying on left side x 2 days. Denies urinary symptoms. On Augmentin day 3. Airway is patent Respiratory effort is even, unlabored, Respiratory pattern is regular, symmetrical. Vital Signs: 15:48 BP 136 / 97; Pulse 95; Resp 20; Temp 99.1; Pulse Ox 100% on R/A; Weight 68.04 kg; hb Height 5 ft. 0 in. ; Pain 5/10; 16:13 BP 137 / 90; Pulse 94; Resp 16; Pulse Ox 99% on R/A; me1 17:15 BP 126 / 78; Pulse 98; Resp 16; Pulse Ox 99% on R/A; me1 17:15 BP 118 / 72; Pulse 92; Resp 17; Pulse Ox 100% on R/A; me1 15:48 Body Mass Index 29.29 (68.04 kg, 152.4 cm) hb 15:48 Pain Scale: Adult hb ED Course: 15:32 Patient arrived in ED. rg4 15:50 [facility] Kebede FNP [facility]. jh7 15:50 Shady Montenegro MD is Attending Physician. jh7 15:51 Arm band placed on. hb 15:52 Triage completed. hb 16:08 Lottie Snow, RN is Primary Nurse. me1 16:16 Inserted saline lock: 22 gauge in right antecubital area, using aseptic technique. me1 16:17 Basic Metabolic Panel Sent. me1 16:17 CBC with Diff Sent. me1 16:17 Troponin HS Sent. me1 16:38 XRAY Chest (1 view) In Process Unspecified. EDMS 17:45 Patient has correct armband on for positive identification. Bed in low position. Call me1 light in reach. Side rails up X 1. Provided Education on: POC. Verbalized understanding. . 17:45 No provider procedures requiring assistance completed. me1 18:06 IV discontinued, intact, bleeding controlled, No redness/swelling at site. Pressure me1 dressing applied. Administered Medications: 16:19 Drug: DuoNeb Nebulize (2.5 mg - 0.5 mg) 3 ml Nebulizer once Route: Nebulizer; in1 16:42 Follow up: Response: No adverse reaction; Wheezing diminished me1 Medication: 17:45 VIS not applicable for this client. in1 Outcome: 17:05 Discharge ordered by . [facility] 18:06 Discharged to home ambulatory, with significant other, me1 18:06 Condition: stable 18:06 Discharge instructions given to patient, family, Instructed on discharge instructions, follow up and referral plans. medication usage, Demonstrated understanding of instructions, follow-up care, medications, Prescriptions given X 3, 18:07 Patient left the ED. in1 Signatures: Dispatcher [employer] [facility] Joan Peralta, RN RN Jennifer Vaz rg4 Shira Kebede, INTRANET SPECIALIST INTRANET SPECIALIST 7 Lottie Snow RN RN in1 Corrections: (The following items were deleted from the chart) 15:53 15:48 Chief complaint: cough, congestion, and mild SOB x 2 weeks, left flank pain that hb is worse when lying on left side x 2 days. Denies urinary symptoms. hb 15:53 15:52 Acuity: MARIS 4 hb hb 17:45 15:48 Chief complaint: cough, congestion, and mild SOB x 2 weeks, left flank pain that me1 is worse when lying on left side x 2 days. Denies urinary symptoms. On Augmentin day 3. hb
[2023-06-13 18:20] VITALS: TEMP 99.1
[2023-06-13 18:32] VITALS: BP 118/72; O2SAT 100
--- NOTE | 2023-06-15 13:34 | EKG ---
Test Date: 2023-06-13 Test Time: 17:37:21 Personal Care Worker: MEASUREMENT RESULTS: Intervals: Rate: 96 IA: 138 QRSD: 82 QT: 378 QTc: 477 [place]: P: 47 IA: 138 QRS: 0 T: 15 INTERPRETIVE STATEMENTS: Normal sinus rhythm Moderate voltage criteria for LVH, may be normal variant Nonspecific ST abnormality Abnormal ECG Compared to ECG 06/13/2016 17:58:41 ST (T wave) deviation now present Electronically Signed On 06-15-23 13:28:10 [employer]PLICATION DEVEL[employer] by Farooq Reyes
== END 2023-06-13 18:07 | disposition home or self-care (01) ==
LOC: ER 15:31
DX: J20.9 Acute bronchitis, unspecified (principal); I10 Essential (primary) hypertension; Z88.1 Allergy status to other antibiotic agents; Z88.2 Allergy status to sulfonamides
CPT/HCPCS: 93005; 85025; 80048; 36415; 84484; 71045; 94640; 99284; J7613; J7644